=== PATIENT | male | born 1965 | race Caucasian/White ===

== ENCOUNTER 2018-06-01 14:00 | Inpatient (IN) | payer BC, OTHER ==
[~2018-06-01] VITALS: Ht 177.8 cm; Wt 90.7 kg
[~2018-06-01 14:00] MED LIST: ATOR20TA PO; CALC-860 PO; GABA100C PO; METO50TA16 PO; QUET100T PO; RIVA20TA PO
--- NOTE | 2018-06-01 16:02 | NUR ---
PRE ASSESSMENT: A 53 yo male in intake with flushed complexion. His skin is moist and edema +2 to hands and feet. He denies pain. BP 131/85 P 74 )2 Sat 95%. T 98.4 He reports drinking Vodka for 80 days. He states he drinks 750 ml of vodka daily and last drank this am aroun 1030. He states he had 4 shots. He denies any other substances. He reports he has been living at [facility] and they are unaware he relapsed or that he is here.He attended AA meetings while drinking and did not get honest with support system. He was here at [facility] in September 2017 followed by Delilah John. 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 He is fidgety and gets emotional on assessment. He states he is starting to feel very edgy. Will assess on unit.
[2018-06-01] MEDS ORDERED: PRAZ2CAP2 PO (16:04)
[2018-06-01] MEDS ORDERED: NIFE30TA89 PO (16:05)
[2018-06-01] MEDS ORDERED: DULO60CA45 PO (16:06)
[2018-06-01] MEDS ORDERED: GABA-534 PO (16:06)
[2018-06-01] MEDS ORDERED: OMEP20CA10 PO (16:07)
[2018-06-01] MEDS ORDERED: TRAZ-214 PO (16:08)
[2018-06-01] MEDS ORDERED: LOPERAMIDE HCL 2 MG CAPSULE PO PRN (16:30)
[2018-06-01] MEDS ORDERED: 5 DAY TAPER VALIUM-SERENITY PROTOCOL PO PRN (16:30)
[2018-06-01] MEDS ORDERED: MAGNESIUM HYDROXIDE 30 ML LIQUID UDC PO PRN (16:30)
[2018-06-01] MEDS ORDERED: LORAZEPAM 1 MG TABLET PO PRN (16:30)
[2018-06-01] MEDS ORDERED: ONDANSETRON ODT 4 MG TAB.RAPDIS SL PRN (16:30)
[2018-06-01] MEDS ORDERED: THIAMINE HCL 200 MG/2 ML VIAL IM ONE (16:30)
[2018-06-01] MEDS ORDERED: diphenhydrAMINE 50 MG CAPSULE PO PRN (16:30)
[2018-06-01] MEDS ORDERED: LORAZEPAM 2 MG/1 ML VIAL IM PRN (16:30)
[2018-06-01] MEDS ORDERED: MAG HYDROX/AL HYDROX/SIMETH 30 ML LIQUID UDC PO PRN (16:30)
[2018-06-01] MEDS: LORAZEPAM 1 MG TABLET PO PRN ×2 (16:54→22:40)
--- NOTE | 2018-06-01 17:00 | NUR ---
ADMISSION: Pt. arrived on unit at 1609 for medically supervised withdrawal of ETOH (Vodka). Skin and body check completed. UA collected for UDS. Edema +2 noted to hands and feet. He denies pain. He is using our W/C for ambulation due to weakness in legs which he states happens when he withdrawals. He presents with guarded affect and anxious mood. His face is flushed. His hands are tremulous. Sweat noted around brow area and hairline. He states he is sensitive to noise and light. He gets emotional on assessment and states the last 80 days he has been lying to everyone in his support group and sober living. BP 131/85 P 74 T 98.4 o2 SAT 95% CIWA 19 ETOH USE HISTORY: He reports drinking Vodka for 80 days. He states he drinks 750 ml of vodka daily and last drank this am around 1030 . He states he had 4 shots. He denies any other substance use. He reports he has been living at [facility] and they are unaware he relapsed or that he is here.He attended AA meetings while drinking. He was here at [facility] in September 2017 followed by Delilah John. He states he has been drinking in this pattern since his relapse 80 days ago. Pt reports his typical s/s of w/d consist of tremors,nausea,tightness in chest,racing heart and weakness in legs. 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 PMH includes HTN ,GERD,Depression,Anxiety and Insomnia.He brought home medications into facility which were reconciled. Dr. Albert in [place] is his PCP. Pt is a candidate for MRSA swab as he has been living in [facility]. He states he is motivated to go to treatment after her. Treatment HX. He has been at [facility]. He was also in [facility] in 2016 and [facility] in 2016. He states his longest period of sobriety was 4 yeasr 2 years ago. He states his triggers to relapsing are the feeling related to his 17 yr old daughter getting hit by a falling tree limb a couple of years ago and paralyzing her confining her to a wheelchair. He also states growing up as a brat kept him him from building close ties. he states he feels a tremendous sense of loss from losing his father a few years ago and people he has loved including ex due to his drinking. Pt states he has a support system,a sponsor and attends meetings and has been dishonest in the last 80 days about his drinking. Oriented Pt to staff and unit. Administered B1 injection as ordered. Administered 2mg Ativan PO PRN for CIWA 19. Pt is laying in bed. Call [place] in reach.Bed locked and low. Encouraged rest. Will provide safe and supportive environment.
[2018-06-01 17:01] LABS: *AMPHETAMINE, URINE NEGATIVE (NEGATIVE); *BARBITURATE, URINE NEGATIVE (NEGATIVE); *CANNABINOID, URINE NEGATIVE (NEGATIVE); *COCCAINE, URINE NEGATIVE (NEGATIVE); *OPIATE, URINE NEGATIVE (NEGATIVE); *PHENCYCLIDINE SCREEN,URINE NEGATIVE (NEGATIVE)
[2018-06-01] MEDS: DULOXETINE 60 MG CAPSULE.DR PO SCH (17:46)
--- NOTE | 2018-06-01 17:55 | NUR ---
Ativan 2 mg PO PRN effective as admission CIWA was 19 and CIWA 14. Pt states he feels anxious but it has lessened. He continues to report sensitivity to light and noise. He reports restlessness. He does have an appetite and is eating dinner. Will continue to monitor and offer support.
[2018-06-01] MEDS ORDERED: QUETIAPINE FUMARATE 100 MG TABLET PO SCH ×2 (18:00→21:00)
[2018-06-01] MEDS ORDERED: TRAZODONE 100 MG TABLET PO SCH (18:00)
--- NOTE | 2018-06-01 18:49 | NUR ---
END OF SHIFT: Newly admitted this afternoon. He is currently laying in bed watching TV. Last CIWA 14 after 2mg of Ativan given for CIWA 19. He ate 50% of dinner. He states the Ativan was mildly effective. Pt was encouraged to increase fluids and rest. Will pass shift report to oncoming night nurse.
--- NOTE | 2018-06-01 19:30 | NUR ---
START OF SHIFT NOTE RECEIVED REPORT FROM DAY SHIFT NURSE. PATIENT IS A 53 YEAR OLD MALE NEWLY ADMITTED FOR ETOH WITHDRAWAL. PATIENT WAS PLACED ON 5 DAY VALIUM TAPER. CIWA WAS 19 DURING ADMISSION, PRN ATIVAN GIVEN AND CIWA WENT DOWN TO 14. PATIENT IN BED RESTING AT THIS TIME, PATIENT UNSHAVEN, FLAT AFFECT, DEPRESSED MOOD AND DISHEVELED. ENCOURAGE SAFETY MEASURES IN PLACE. CALL LIGHT IN REACH. WILL CONTINUE TO MONITOR.
[2018-06-01 20:00] VITALS: BP 136/66
--- NOTE | 2018-06-01 20:00 | NUR ---
CIWA ASSESSMENT PATIENT PRESENTS WITH ANXIETY, RESTLESSNESS , IRRITABILITY , FLUSHED FACE, DIAPHORESIS, GENERALIZED BODY ACHES, BILATERAL TREMORS NOTED ON BOTH HANDS, RESTLESS LEGS, TIGHTNESS ON CHEST, PER PATIENT IT'S ONE OF HIS WITHDRAWAL SYMPTOMS WHEN HE DON'T DRINK. VS BP- 136/66 P-64 T-97.8 R-18 PA-05/03 SpO2 AT 94% IN RA. Addendum: 06/01/18 at 2228 by MARY GRAF LVN CIWA IS 18
[2018-06-01] MEDS: IBUPROFEN 600 MG TABLET PO PRN (20:04)
--- NOTE | 2018-06-01 20:04 | NUR ---
PRN MOTRIN ADMINISTRATION PATIENT C/O GENERALIZED BODY ACHES AND TIGHTNESS ON CHEST. WILL MONITOR FOR EFFECTIVENESS
[2018-06-01] MEDS ORDERED: DIAZEPAM 10 MG TABLET PO SCH (21:00)
--- NOTE | 2018-06-01 21:04 | NUR ---
RYAN REILLY RE-ASSESSMENT PATIENT STATES PAIN IS STILL 6/10, PATIENT STILL HE STILL FEELS PRESSURE AND TIGHTNESS ON HIS CHEST. NO SOB. NO NUMBNESS OR WEAKNESS IN THE FACE , ARM OR LEG. ALERT AND ORIENTED. WILL NOTIFY DR. CEDEÑO
--- NOTE | 2018-06-01 21:45 | NUR ---
RN note EKG, Troponin and CKMB Patient c/o chest tightness with no radiation. Vital signs were checked and as follows: VN=493/66, Pulse=93, O2 sat on room air=95%. Dr. Pederson on the unit and he ordered EKG stat, Troponin stat and CKMB stat. Orders entered.
[2018-06-01] MEDS: TRAZODONE 100 MG TABLET PO SCH (22:36)
--- NOTE | 2018-06-01 22:40 | NUR ---
PRN ATIVAN ADMINISTRATION PATIENT ANXIOUS, RESTLESS, AGITATED, RESTLESS, WORRIED, SWEATING AND PANIC FEELING. CIWA 16
[2018-06-01 22:59] LABS: BILIRUBIN,TOTAL 0.4 mg/dL (0.2-1.0); CREATININE 0.9 mg/dL (0.6-1.3); MAGNESIUM 2.1 mg/dL (1.8-2.4); POTASSIUM 3.4 mmol/L (3.5-5.1); TOTAL PROTEIN, SERUM 6.3 g/dL (6.4-8.2)
[2018-06-01 23:14] LABS: BASOPHILS % (AUTO) 1.1 % (0.0-2.0); EOSINOPHILS # (AUTO) 0.2 K/uL (0.0-0.7); HEMATOCRIT 39.5 % (36.7-47.1); HEMOGLOBIN 13.8 g/dL (12.5-16.3); LYMPHOCYTES # (AUTO) 1.6 K/uL (20.0-40.0); LYMPHOCYTES % (AUTO) 37.9 % (20.5-51.5); MEAN CORPUSCULAR HEMOGLOBIN 35.1 uug (23.8-33.4); MEAN CORPUSCULAR HGB CONC 35 g/dL (32.5-36.3); MEAN CORPUSCULAR VOLUME 100.7 fL (73.0-96.2); MONOCYTES # (AUTO) 0.6 K/uL (2.0-10.0); MONOCYTES % (AUTO) 13.5 % (0.0-11.0); NEUTROPHILS # (AUTO) 1.8 K/uL (1.8-8.9); NEUTROPHILS % (AUTO) 42.5 % (38.5-71.5); PLATELET COUNT (AUTO) 178 K/uL (152-348); RED BLOOD CELL COUNT(AUTO) 3.93 MIL/uL (4.06-5.63); WHITE BLOOD COUNT (AUTO) 4.2 K/uL (3.6-10.2)
[2018-06-01] MEDS ORDERED: POTASSIUM CHLORIDE 20 MEQ TAB.PRT.SR PO ONE (23:30)
--- NOTE | 2018-06-01 23:40 | NUR ---
PRN ATIVAN RE-ASSESSMENT PATIENT STATES ATIVAN HELPFUL. PATIENT IS LESS ANXIOUS. CIWA IS 14. CHEST TIGHTNESS IS 4/10 AT THIS TIME, TOLERABLE.
[2018-06-02] VITALS: BP 124/76
--- NOTE | 2018-06-02 | NUR ---
CIWA ASSESSMENT PATIENT IN BED WITH EYES CLOSED. PATIENT WOKE WHEN VS WAS TAKEN. PATIENT STATES ANXIETY IS STILL THE SAME BUT WILL TRY TO GO BACK TO SLEEP. SWEATING AND FINE TREMORS NOTED ON BILATERAL HANDS. CHEST TIGHTNESS IS 4/10 , TOLERABLE. NO NUMBNESS ON FACE , ARMS OR NECK. CIWA IS 11 AT THIS TIME.
[2018-06-02 02:58] LABS: EOSINOPHILS % (MANUAL) 3 % (0-8); LYMPHOCYTES % (MANUAL) 36 % (20-40); MONOCYTES % (MANUAL) 17 % (2-10); NEUTROPHILS % (MANUAL) 44 % (42-75)
[2018-06-02 04:00] VITALS: BP 134/74
--- NOTE | 2018-06-02 04:00 | NUR ---
CIWA ASSESSMENT PATIENT IN BED, WOKE UP WHILE DOING VS. PATIENT PRESENTS WITH ANXIETY, FINE TREMORS , SWEATING AND C/O CHEST TIGHTNESS 3/10 BUT TOLERABLE. WILL CONTINUE TO MONITOR
--- NOTE | 2018-06-02 07:16 | NUR ---
END OF SHIFT NOTE PATIENT SLEPT 8 HOURS. FLUID INTAKE 850 ML. VOIDED X 1. NO BM. MONITORED PATIENT THROUGHOUT SHIFT. PATIENT WAS ANXIOUS, RESTLESS, PANIC FEELING, BILATERAL HAND TREMORS, SWEATING AND C/O CHEST TIGHTNESS WHICH HE STATED WAS ONE OF HIS WITHDRAWAL SYMPTOMS WHEN NOT DRINKING. NO NUMBNESS ON FACE. NO SOB. PATIENT WAS STARTED ON VALIUM TAPER, NO ADVERSE REACTION. PRN MOTRIN WAS GIVEN WAS INEFFECTIVE. DR. CEDEÑO WAS HERE AND ASSESSED PATIENT. HE MADE AN ORDER FOR EKG AND LABS. NEW ORDER OF PROCARDIA ORDERED. PATIENT WAS GIVEN PRN ATIVAN AND MOTRIN . PATIENT WAS C/O CHEST TIGHTNESS AND GOT BETTER OVERNIGHT. PAIN WAS 3/10 AT 4 AM AND STATES, TOLERABLE. TROPONIN WAS NORMAL. EKG WAS SEEN BY DR. CEDEÑO AND NO NEW ORDER GIVEN. VS WNL. LAST ONE WAS 134/74, HR-67. RELAXATION TECHNIQUE PROVIDED. ENCOURAGED FLUIDS. LAST CIWA 11 AT 4 AM. SAFETY MEASURES IN PLACE. CALL LIGHT IN REACH. WILL CONTINUE TO MONITOR.
--- NOTE | 2018-06-02 07:40 | NUR ---
START OF SHIFT PT IS A 53 Y/O M ADMITTED ON 06/01/18 FOR MEDICALLY SUPERVISED ETOH - VODKA WITHDRAWAL. PT HAS BEEN PLACED ON A VALIUM TAPER THAT STARTED ON LAST NIGHT AND TOLERATED WELL. PT HAS BEEN GIVEN ATIVAN 2 MG, IBUPROFEN PO PRNS LAST SHIFT. LAST CI 11 @0400. PT HAS AN ANXIOUS AND WORRIED AFFECT, FACIAL FLUSHING, PT PRESENTS DIAPHORESIS, TREMORS, FEELING OF "TIGHTNESS OF THE CHEST," HIGH ANXIETY, RESTLESSNESS, AGITATION, AND TINGLING SENSATION ON THE FEET. PT REPORTS HE HAS HAD THE FEELING OF "TIGHTNESS OF THE CHEST" WHEN WITHDRAWALING BEFORE, AND FEELS IT MAY BE DUE TO HIS HIGH ANXIETY. TROPONIN NEG, EKG WAS SEEN BY MD; CK-MD PENDING. INSTRUCTED PT TO DO DEEP BREATHING EXERCISES TO PROMOTE RELAXATION. SIDE RAILS UP X2, BED IN LOW POSITION, CALL LIGHT WITHIN REACH. WILL CONTINUE TO MONITOR. Addendum: 06/02/18 at 0958 by CHUY OLIVER RN PT HAS PITTING +1 EDEMA ON BILATERAL ANKLES AND WRISTS.
[2018-06-02] MEDS: PANTOPRAZOLE SODIUM 40 MG TABLET.DR PO SCH (07:46)
[2018-06-02] MEDS: LORAZEPAM 1 MG TABLET PO PRN (07:46)
--- NOTE | 2018-06-02 07:46 | NUR ---
PRN ATIVAN 2 MG PO PRN GIVEN FOR CIWA 17. PT PRESENTS FACIAL FLUSHING, ANXIOUS AFFECT, C/O CHEST TIGHTNESS, INCREASED ANXIETY, AGITATION, RESTLESSNESS, FEELING OF PANIC. WILL CLOSELY MONITOR AND REASSESS. Addendum: 06/02/18 at 0833 by CHUY OLIVER RN CHEST PAIN 01/31, ANXIETY 06/02.
[2018-06-02 08:00] VITALS: BP 173/104
--- NOTE | 2018-06-02 08:00 | NUR ---
CIWA ASSESSMENT CIWA 17. PT LAYING IN BED WITH TV ON, A/OX4, RESPIRATIONS EVEN AND UNLABORED. PT OFTEN TAKES DEEP BREATHES. PT HAS FACIAL FLUSHING, PT PRESENTS DIAPHORESIS, TREMORS, FEELING OF "TIGHTNESS OF THE CHEST" - 3/10 PAIN, HIGH ANXIETY, RESTLESSNESS, AGITATION, AND TINGLING SENSATION ON THE FEET. BP 173/104, HR: 67, RR: 18, O2SAT 99%, T: 98.3. ATIVAN 2MG PO PRN GIVEN @0746, SCHEDULED 0800 PROCARDIA GIVEN. WILL CLOSELY MONITOR.
[2018-06-02] MEDS: DULOXETINE 60 MG CAPSULE.DR PO SCH (08:18)
[2018-06-02] MEDS: FOLIC ACID 1 MG TABLET PO SCH (08:18)
[2018-06-02] MEDS: THIAMINE HCL 100 MG TABLET PO SCH (08:18)
[2018-06-02] MEDS: ATORVASTATIN 20 MG TABLET PO SCH (08:18)
[2018-06-02] MEDS: MULTIVITAMINS,THERAPEUTIC TABLET PO SCH (08:18)
[2018-06-02] MEDS: NIFEdipine XL 30 MG TABSR PO SCH (08:29)
--- NOTE | 2018-06-02 08:46 | NUR ---
REASSESSMENT PT REPORTS STILL HAVING CHEST TIGHTNESS BUT HAS DECREASED HIS ANXIETY SLIGHTLY TO 6. PT STATES IT IS UNCOMFORTABLE AND MAKES HIM WANT TO TAKE DEEP BREATHS. WILL CONTINUE TO CLOSELY MONITOR. Addendum: 06/02/18 at 1217 by CHUY OLIVER RN BP :158/99 HR: 65
[2018-06-02] MEDS: DIAZEPAM 10 MG TABLET PO SCH ×3 (08:50→20:30)
[2018-06-02] MEDS ORDERED: TUBERCULIN,PURIF.PROT.DERIV. 5 TU/0.1 ML TEST ID ONE (09:00)
[2018-06-02] MEDS ORDERED: Medication Not On Formulary EA (Rivaroxaban (Xarelto) 1 TAB) PO SCH (09:00)
[2018-06-02] MEDS ORDERED: Medication Not On Formulary EA (Omeprazole 1 CAP) PO SCH (09:00)
--- NOTE | 2018-06-02 10:06 | NUR ---
2G NA DIET ORDERED. Addendum: 06/02/18 at 1645 by CHUY OLIVER RN COMMUNICATIONS; SAMUEL DIET ORDERED BY
--- NOTE | 2018-06-02 12:00 | NUR ---
CIWA ASSESSMENT CIWA 16. PT HAS BEEN ISOLATIVE IN ROOM, PRESENT AN ANXIOUS MOOD, FACIAL FLUSHING, DIAPHORESIS, TREMORS, ANXIETY, AGITATION, CONTINUES TO C/O FEELING OF "TIGHTNESS OF THE CHEST" - 3/10 PAIN, RESTLESSNESS, AND TINGLING SENSATION ON THE FEET. WILL CONTINUE TO CLOSELY MONITOR.
[2018-06-02 12:17] VITALS: BP 141/81
--- NOTE | 2018-06-02 14:33 | NUR ---
Client was prompted to attend group counseling sessions.
--- NOTE | 2018-06-02 15:10 | NUR ---
PRN ZOFRAN 4 MG SL, IBUPROFEN 600 MG, MILK OF MAG, PRN GIVEN. PT IS LAYING IN BED, WITH ANXIOUS AFFECT, C/O NAUSEA, UPPER STOMACH PAIN, HEADACHE PAIN 6/10. WILL MONITOR AND REASSESS.
[2018-06-02] MEDS: IBUPROFEN 600 MG TABLET PO PRN (15:11)
[2018-06-02 16:00] VITALS: BP_SYST 156; BP_SYST 161; BP_DIAS 100; BP_DIAS 93
--- NOTE | 2018-06-02 16:00 | NUR ---
CIWA ASSESSMENT CIWA 18. PT PRESENT AN ANXIOUS MOOD, NAUSEA, HEADACHE, FACIAL FLUSHING, DIAPHORESIS, TREMORS, ANXIETY, AGITATION, FEELING OF "TIGHTNESS OF THE CHEST" - 3/10 PAIN, RESTLESSNESS, AND TINGLING SENSATION ON THE FEET. WILL CONTINUE TO CLOSELY MONITOR.
--- NOTE | 2018-06-02 16:10 | NUR ---
REASSESSMENT PT REPORTS MEDICATION WAS EFFECTIVE AND NAUSEA CEASED AND STOMACH PAIN AND HEADACHE DECREASED IN INTENSITY. WILL CONTINUE TO MONITOR.
[2018-06-02] MEDS ORDERED: Medication Not On Formulary EA (Prazosin Hcl 1 CAP) PO SCH (18:00)
[2018-06-02] MEDS: RIVAROXABAN 10 MG TABLET PO SCH (18:00)
[2018-06-02] MEDS: CLONIDINE HCL 0.1 MG TABLET PO PRN (18:03)
--- NOTE | 2018-06-02 18:03 | NUR ---
PRN CLONIDINE GIVEN FOR BP 161/100. WILL MONITOR AND REASSESS.
--- NOTE | 2018-06-02 19:03 | NUR ---
REASSESSMENT BP DECREASED TO 156/93. WILL CONTINUE TO MONITOR.
--- NOTE | 2018-06-02 19:28 | NUR ---
END OF SHIFT LAST CIWA 18. PT HAS BEEN GIVEN CLONIDINE FOR BP 161/100; DECREASED TO 156/93. PT HAS BEEN GIVEN ATIVAN 2MG, MILK OF MAG, IBUPROFEN 600 MG, ZOFRAN 4 MG, CLONIDINE PRNS DURING SHIFT. PT CONTINUES TO C/O CHEST PRESSURE BUT STATED IT HAD DECREASED SLIGHTLY BEFORE END OF SHIFT. FLUID INTAKE 1750 ML, VOIDED X4, BM 1. PT HAS BEEN ISOLATIVE IN ROOM LAYING IN BED THROUGHOUT SHIFT W/ C/O FATIGUE. SAFETY MEASURES IN PLACE. ENDORSEMENT GIVEN TO TURPENTINE FARMER NURSE.
--- NOTE | 2018-06-02 19:30 | NUR ---
START OF SHIFT NOTE RECEIVED REPORT FROM DAY SHIFT NURSE. PATIENT IS A 53 YEAR OLD MALE ADMITTED FOR ETOH WITHDRAWAL. CONTINUE ON VALIUM TAPER. PATIENT ISOLATIVE. PATIENT WAS GIVEN FOR ZOFRAN, MILK OF MAGNESIA, IBUPROFEN , CLONIDINE AND ATIVAN. LAST CIWA 16. PATIENT IN THE ROOM , RESTING AT THIS TIME. UPON ASSESSMENT , PATIENT PRESENTS WITH ANXIETY, FLUSHED FACE, DIAPHORESIS, RESTLESSNESS, FIDGETY, YAWNING, NOTED BILATERAL TREMORS ON BOTH HANDS WHILE DRINKING HIS WATER, PINS AND NEEDLE SENSATION ON BOTH LEGS, SENSITIVE TO LIGHT AND SOUNDS. SAFETY MEASURES IN PLACE. CALL LIGHT IN REACH. WILL CONTINUE TO MONITOR.
[2018-06-02 20:00] VITALS: BP 147/88
--- NOTE | 2018-06-02 20:00 | NUR ---
CIWA ASSESSMENT PATIENT UNSHAVEN, DISHEVELED, FLAT AFFECT AND DEPRESSED MOOD. PATIENT PRESENTS WITH ANXIETY, FLUSHED FACE, DIAPHORESIS, RESTLESSNESS, FIDGETY, YAWNING, TENSE, NOTED BILATERAL TREMORS ON BOTH HANDS WHILE DRINKING HIS WATER, PINS AND NEEDLE SENSATION ON BOTH LEGS, SENSITIVE TO LIGHT/ SOUNDS AND FATIGUE. CIWA 17
[2018-06-02] MEDS: TRAZODONE 100 MG TABLET PO SCH (20:30)
[2018-06-02] MEDS: PRAZOSIN HCL 1 MG CAPSULE PO SCH (20:30)
[2018-06-03] VITALS: BP 123/75
--- NOTE | 2018-06-03 | NUR ---
CIWA DEFERRED PATIENT SLEEPING . RESPIRATION EVEN AND UNLABORED. SAFETY MEASURES IN PLACE. CALL LIGHT IN REACH. WILL CONTINUE TO MONITOR
[2018-06-03 04:00] VITALS: BP 123/78
--- NOTE | 2018-06-03 04:00 | NUR ---
CIWA DEFERRED PATIENT SLEEPING . RESPIRATION EVEN AND UNLABORED. SAFETY MEASURES IN PLACE. CALL LIGHT IN REACH. WILL CONTINUE TO MONITOR
[2018-06-03] MEDS: HYDROXYZINE PAMOATE 25 MG CAPSULE PO PRN ×2 (05:20→13:48)
[2018-06-03] MEDS: IBUPROFEN 600 MG TABLET PO PRN (05:20)
--- NOTE | 2018-06-03 05:20 | NUR ---
CIWA ASSESSMENT PATIENT WOKE C/O HEADACHE, MODERATE ANXIETY, SWEATING, CHILLS, RESTLESS LEGS, YAWNING, SENSITIVE TO LIGHT AND SOUNDS . CIWA 12.
--- NOTE | 2018-06-03 05:20 | NUR ---
PRN MOTRIN AND VISTARIL ADMINISTRATION PATIENT C/O HEADACHE AND ANXIETY. WILL MONITOR FOR EFFECTIVENESS
--- NOTE | 2018-06-03 07:11 | NUR ---
END OF SHIFT NOTE PATIENT SLEPT 11 HOURS. FLUID INTAKE 1,250 ML. VOIDED X 1. NO BM. MONITORED PATIENT THROUGHOUT SHIFT. PATIENT TENDS TO BE ISOLATIVE. SCHEDULED MEDICATION AND VALIUM TAPER ORDERED, TOLERATED WELL AND NO ADVERSE REACTION. PATIENT PRESENTED WITH ANXIETY, FLUSHED FACE, DIAPHORESIS, RESTLESSNESS, FIDGETY, YAWNING, NOTED BILATERAL TREMORS ON BOTH HANDS , PINS AND NEEDLE SENSATION ON BOTH LEGS, SENSITIVE TO LIGHT AND SOUNDS AND FATIGUE. PATIENT STATES MEDICATIONS ARE EFFECTIVE IN CONTROLLING HIS WITHDRAWAL SYMPTOMS. AT 0520, PATIENT C/O OF HEADACHE AND ANXIETY, PRN MOTRIN AND VISTARIL GIVEN, EFFECTIVE. LAST CIWA 12. SAFETY MEASURES IN PLACE. CALL LIGHT IN REACH. WILL CONTINUE TO MONITOR.
[2018-06-03] MEDS: PANTOPRAZOLE SODIUM 40 MG TABLET.DR PO SCH (07:25)
--- NOTE | 2018-06-03 07:30 | NUR ---
Pt. is a 53 y/o male admitted for the medically managed withdrawal from ETOH. Pt placed on a 5 day valium taper to manage his withdrawal symptoms. Endorsed pt.'s behavior from previous shift as being anxious, restless, and isolative. Received pt. in room. Pt. in bed with eyes closed. Pt. responds to name and touch. No signs of SOB noted. Pt. presents with flushed facial skin, diaphoresis and hand tremors. Educated pt. on treatment plan for the day and medication regiment. Pt. given PRN Motrin and Vistaril to manage his symptoms last night. Last CI 12. Safety measures in place. Will continue to monitor pt.'s behavior for safety.
[2018-06-03 08:00] VITALS: BP 131/89
[2018-06-03] MEDS: DIAZEPAM 5 MG TABLET PO SCH ×4 (08:51→20:17)
[2018-06-03] MEDS: DULOXETINE 30 MG CAPSULE.DR PO SCH (08:51)
[2018-06-03] MEDS: ATORVASTATIN 20 MG TABLET PO SCH (08:51)
[2018-06-03] MEDS: FOLIC ACID 1 MG TABLET PO SCH (08:51)
[2018-06-03] MEDS: THIAMINE HCL 100 MG TABLET PO SCH (08:51)
[2018-06-03] MEDS: MULTIVITAMINS,THERAPEUTIC TABLET PO SCH (08:51)
[2018-06-03] MEDS: NIFEdipine XL 30 MG TABSR PO SCH (08:51)
[2018-06-03] MEDS ORDERED: DULOXETINE 60 MG CAPSULE.DR PO SCH (09:00)
[2018-06-03 10:11] LABS: HEPATITIS B SURFACE AG Negative (Negative)
[2018-06-03 12:00] VITALS: BP 143/99
[2018-06-03] MEDS: CLONIDINE HCL 0.1 MG TABLET PO PRN (13:48)
--- NOTE | 2018-06-03 13:48 | NUR ---
PRN Medication Pt. in room with flushed facial skin and complaining of anxiety. At this time gave pt. PRN vistaril and clonidine. Will continue to monitor pt.'s behavior for medication effectiveness and safety.
--- NOTE | 2018-06-03 14:48 | NUR ---
PRN Re-Assessment Pt. laying in bed with eyes closed. Respirations even and unlabored. Medication effective. Will continue to monitor pt.'s behavior for safety.
[2018-06-03] MEDS: RIVAROXABAN 10 MG TABLET PO SCH (16:53)
[2018-06-03 17:03] VITALS: BP 124/82
--- NOTE | 2018-06-03 19:00 | NUR ---
End of Shift Note Pt. is a 53 y/o male admitted for the medically managed withdrawal from ETOH. Pt placed on a 5 day valium taper to manage his withdrawal symptoms. Throughout shift pt. presented with flushed facial skin, diaphoresis and hand tremors. Upon approach pt. is pleasant but guarded with a flat affect. Encouraged pt. to verbalize concerns and emotions. Pt. isolated himself in his room for the majority of the shift only coming out for needs. Pt. given PRN Clonidine and Vistaril to manage his symptoms. Last CIWA 14 at 1600. Safety measures in place. Will endorse pt's care to oncoming shift.
--- NOTE | 2018-06-03 19:10 | NUR ---
Start of shift note Received report from day shift nurse. Pt is a 53 yo male, A+Ox4, presenting to [facility] for ETOH withdrawal. Pt noted to be anxious, agitated, and restless. Pt has HX of HTN, GERD, Anxiety, Depression, and insomnia which will be monitored during shift. Pt is on 5 day Valium taper, tolerated well. Respirations even and unlabored. Will continue to monitor.
[2018-06-03 20:08] VITALS: BP 140/96
--- NOTE | 2018-06-03 20:09 | NUR ---
CIWA: 13, Pt noted with fine tremors, sweat on forehead, anxiety, agitation, itchiness, and mild headache. Respirations even and unlabored. Will continue to monitor.
[2018-06-03] MEDS: PRAZOSIN HCL 1 MG CAPSULE PO SCH (20:17)
[2018-06-03] MEDS: TRAZODONE 100 MG TABLET PO SCH (20:17)
--- NOTE | 2018-06-04 00:22 | NUR ---
V/S refused and CIWA deferred for sleep. Respirations even and unlabored. Will continue to monitor.
[2018-06-04] MEDS: IBUPROFEN 600 MG TABLET PO PRN ×2 (01:43→14:56)
[2018-06-04] MEDS: HYDROXYZINE PAMOATE 25 MG CAPSULE PO PRN (01:43)
--- NOTE | 2018-06-04 01:45 | NUR ---
PRN Motrin and Vistaril Pt c/o anxiety and headache 03/03. PRN Motrin and Vistaril given and tolerated well. Will reassess within 1 HR. Will continue to monitor.
--- NOTE | 2018-06-04 02:40 | NUR ---
PRN Motrin and Vistaril Reassessment Medications effective. Pt expresses reduction of headache to 2/10 and reduction in anxiety. No s/s of ASE noted at this time. Respirations even and unlabored. Will continue to monitor.
--- NOTE | 2018-06-04 04:10 | NUR ---
V/S refused and CIWA deferred for sleep. Respirations even and unlabored. Will continue to monitor.
--- NOTE | 2018-06-04 06:48 | NUR ---
End of shift note Pt was continuously noted with anxiety, agitation, fine tremors, restlessness, and headache. Pt remained in room for majority of shift except to get food from kitchen. Pt remained cooperative and compliant with all aspects of treatment. Pt was given PRN Motrin and Vistaril @0145. Pt is on 5 day Valium taper, tolerated well. Pt slept for a total of 7 HRS. Last CIWA: 13 @1999. Respirations even and unlabored. Will endorse to day shift nurse.
[2018-06-04] MEDS: PANTOPRAZOLE SODIUM 40 MG TABLET.DR PO SCH (06:54)
--- NOTE | 2018-06-04 07:30 | NUR ---
START OF SHIFT Pt 53 y/o male admitted for etoh withdrawal. Pt received with eyes closed resting, but easily arousable to name. Pt alert and oriented to name, place, and time. Perrla. Skin warm and moist to touch. Respirations even and unlabored. Bilateral hand tremors noted. Pt appears disheveled. Clothes and empty drink bottles scattered throughout the room. Encouraged to maintain hygiene. Pt irritable this morning, requesting for me to leave room because he stated he wants to go back to sleep. Pt also refused labs this morning and verbalized for the refuse laborer to come back at a later time. It was reported that pt slept for 7 hours last night. Pt is on a 5 day valium and is on day 4. It was reported that pt received motrin po prn and vistaril po prn per MD order last night. Bed on lowest position with side rails x2 up for safety. Call light within reach.
[2018-06-04 08:00] VITALS: BP 115/71
--- NOTE | 2018-06-04 08:00 | NUR ---
CIWA ASSESSMENT Pt with ciwa = 16. Pt agitated, and did not want to be disturbed. Perspiration on head and skin noted. Bilateral hand tremors noted. Pressured speech noted with pt responses.
[2018-06-04] MEDS: DULOXETINE 30 MG CAPSULE.DR PO SCH (08:33)
[2018-06-04] MEDS: FOLIC ACID 1 MG TABLET PO SCH (08:33)
[2018-06-04] MEDS: NIFEdipine XL 30 MG TABSR PO SCH (08:34)
[2018-06-04] MEDS: ATORVASTATIN 20 MG TABLET PO SCH (08:34)
[2018-06-04] MEDS: MULTIVITAMINS,THERAPEUTIC TABLET PO SCH (08:34)
[2018-06-04] MEDS: THIAMINE HCL 100 MG TABLET PO SCH (08:34)
[2018-06-04] MEDS: DIAZEPAM 5 MG TABLET PO SCH ×3 (08:34→20:40)
[2018-06-04 10:39] LABS: BILIRUBIN,TOTAL 0.7 mg/dL (0.2-1.0); CREATININE 0.8 mg/dL (0.6-1.3); POTASSIUM 3.9 mmol/L (3.5-5.1); TOTAL PROTEIN, SERUM 7.2 g/dL (6.4-8.2)
[2018-06-04 12:00] VITALS: BP 128/84
--- NOTE | 2018-06-04 12:00 | NUR ---
CIWA ASSESSMENT Pt with ciwa = 16. Pt agitated, and did not want to be disturbed. Perspiration on forehead noted. Bilateral hand tremors noted. Pressured speech noted with pt responses. Pt with complaints of chills and sweats.
--- NOTE | 2018-06-04 14:58 | NUR ---
PRN IBUPROFEN Pt states has headache 05/03. Ibuprofen po prn per MD order given and tolerated well.
--- NOTE | 2018-06-04 15:58 | NUR ---
PRN IBUPROFEN EVAL Pt states headache 01/03.
[2018-06-04 16:00] VITALS: BP 108/75
--- NOTE | 2018-06-04 16:00 | NUR ---
CIWA ASSESSMENT Pt with ciwa = 16. Pt irritable. Pt anxious too. Skin moist to touch. Bilateral hand tremors noted. Pt with complaints of chills and sweats.
[2018-06-04] MEDS: RIVAROXABAN 10 MG TABLET PO SCH (16:46)
--- NOTE | 2018-06-04 18:33 | NUR ---
END OF SHIFT Pt 53 y/o male admitted for etoh withdrawal. Pt alert and oriented to name, place, and time. Perrla. Skin warm and moist to touch. Respirations even and unlabored. Bilateral hand tremors noted. Pt appears disheveled with hair uncombed, and unkempt. Empty drink bottles scattered throughout the room. Encouraged to maintain hygiene. Pt isolative with no peer interaction. Pt with low motivation for self care. Pt with periods of irritability throughout the morning, refusing labs to be drawn this morning. Pt did not attend group activity. Pt was seen by MD today. Pt medication compliant. Pt last ciwa= 16@1600. Pt is on a 5 day valium taper and is on day 4. Bed on lowest position with side rails x2 up for safety. Call light within reach.
--- NOTE | 2018-06-04 19:10 | NUR ---
Start of shift note Received report from day shift nurse. Pt is a 53 yo male, A+Ox4, presenting to [facility] for ETOH withdrawal. Pt noted with agitation, anxiety, fine tremors, stuffy nose, and restlessness. Pt has HX of HTN, GERD, Anxiety, depression, insomnia, aneurism, craniotomy, Right shoulder repair, and DVT which will be monitored during shift. Pt is on 5 day Valium taper, tolerated well. Respirations even and unlabored. Will continue to monitor.
[2018-06-04] MEDS ORDERED: OXYMETAZOLINE NASAL 0.05% 15 ML SPRAY NS PRN (19:45)
[2018-06-04 20:06] VITALS: BP 138/86
--- NOTE | 2018-06-04 20:06 | NUR ---
CIWA: 13. Pt noted with fine tremors, sweat on forehead, anxiety, agitation, and itchiness. Respirations even and unlabored. Will continue to monitor.
[2018-06-04] MEDS: PRAZOSIN HCL 1 MG CAPSULE PO SCH (20:40)
[2018-06-04] MEDS: TRAZODONE 100 MG TABLET PO SCH (20:40)
--- NOTE | 2018-06-05 00:25 | NUR ---
V/S refused and CIWA deferred for sleep. Respirations even and unlabored. Will continue to monitor.
--- NOTE | 2018-06-05 04:18 | NUR ---
V/S refused and CIWA deferred for sleep. Respirations even and unlabored. Will continue to monitor.
[2018-06-05] MEDS: PANTOPRAZOLE SODIUM 40 MG TABLET.DR PO SCH (06:34)
--- NOTE | 2018-06-05 06:54 | NUR ---
End of shift note Pt was continuously noted with anxiety, agitation, restlessness, and fine tremors. Pt remained in room for majority of shift except to get food from kitchen. Pt remained cooperative and compliant with all aspects of treatment. Pt was not given any PRN medications during shift. Pt is on 5 day Valium taper, tolerated well. Pt slept for a total of 9 HRS. Last CIWA: 13 @2000. Respirations even and unlabored. Will endorse to day shift nurse.
--- NOTE | 2018-06-05 07:23 | NUR ---
START OF SHIFT Pt 53 y/o male admitted for etoh withdrawal. Pt received with eyes closed resting, but easily arousable to name. Pt alert and oriented to name, place, and time. Perrla. Skin warm and moist to touch. Respirations even and unlabored. Bilateral hand tremors noted. Pt appears disheveled. Food wrappings and empty drink bottles scattered throughout the room. Encouraged to maintain hygiene. Pt with low motivation for self care. Pt appears anxious and restless this morning, not able to lay still. It was reported that pt slept for 9 hours last night. Pt is on a 5 day valium and is on day 5. Last ciwa=13 reported at 1999. It was reported that pt remained isolative to room last night. Bed on lowest position with side rails x2 up for safety. Call light within reach.
[2018-06-05 08:00] VITALS: BP 115/80
--- NOTE | 2018-06-05 08:00 | NUR ---
CIWA ASSESSMENT ciwa=13. Pt with moist skin noted. Pt appears irritable and agitated making short abrupt responses. Bilateral hand tremors noted.
[2018-06-05] MEDS: DIAZEPAM 5 MG TABLET PO SCH ×2 (08:45→20:16)
[2018-06-05] MEDS: ATORVASTATIN 20 MG TABLET PO SCH (08:45)
[2018-06-05] MEDS: DULOXETINE 30 MG CAPSULE.DR PO SCH (08:45)
[2018-06-05] MEDS: THIAMINE HCL 100 MG TABLET PO SCH (08:46)
[2018-06-05] MEDS: FOLIC ACID 1 MG TABLET PO SCH (08:46)
[2018-06-05] MEDS: NIFEdipine XL 30 MG TABSR PO SCH (08:46)
[2018-06-05] MEDS: MULTIVITAMINS,THERAPEUTIC TABLET PO SCH (08:46)
[2018-06-05 12:00] VITALS: BP 103/58
--- NOTE | 2018-06-05 12:00 | NUR ---
CIWA ASSESSMENT ciwa=13. Pt appears irritable and agitated. Pt skin moist to touch and with c/o chills and sweats. Bilateral hand tremors noted.
[2018-06-05 16:00] VITALS: BP 115/62
--- NOTE | 2018-06-05 16:00 | NUR ---
CIWA ASSESSMENT ciwa=13. Pt appears irritable and agitated. Skin moist to touch and with c/o chills and sweats. Bilateral hand tremors noted.
[2018-06-05] MEDS: RIVAROXABAN 10 MG TABLET PO SCH (16:46)
--- NOTE | 2018-06-05 18:23 | NUR ---
END OF SHIFT Pt 53 y/o male admitted for etoh withdrawal. Pt alert and oriented to name, place, and time. Perrla. Skin warm and moist to touch. Respirations even and unlabored. Bilateral hand tremors noted. Pt appears disheveled with hair uncombed, and unkempt. Food wrappings scattered throughout the room. Encouraged to maintain hygiene. Pt isolative with no peer interaction. Pt with low motivation for self care. Pt isolative to room all day. Pt did not attend group activity. Pt was seen by MD today. Pt medication compliant. Pt last ciwa= 13@1600. Pt is on a 5 day valium taper and is on day 5. Bed on lowest position with side rails x2 up for safety. Call light within reach.
--- NOTE | 2018-06-05 19:12 | NUR ---
Start of shift note Received report from day shift nurse. Pt is a 53 yo male, A+Ox4, presenting to [facility] for ETOH withdrawal. Pt noted to be anxious, restless, agitated, sweaty, and have fine tremors. Pt has HX of HTN, GERD, Anxiety, Depression, insomnia, DVT, Aneurism, Craniotomy, and Right shoulder repair which will be monitored during shift. Pt is on 5 day Valium taper, tolerated well. Respirations even and unlabored. Will continue to monitor.
[2018-06-05 20:10] VITALS: BP 128/89
--- NOTE | 2018-06-05 20:10 | NUR ---
CIWA: 12. Pt noted with fine tremors, sweat on forehead, anxiety, agitation, and itchiness. Respirations even and unlabored. Will continue to monitor.
[2018-06-05] MEDS: QUETIAPINE FUMARATE 100 MG TABLET PO SCH (20:16)
[2018-06-05] MEDS: TRAZODONE 100 MG TABLET PO SCH (20:16)
[2018-06-05] MEDS: PRAZOSIN HCL 1 MG CAPSULE PO SCH (20:16)
--- NOTE | 2018-06-06 00:15 | NUR ---
V/S refused and CIWA deferred for sleep. Respirations even and unlabored. Will continue to monitor.
--- NOTE | 2018-06-06 04:17 | NUR ---
V/S refused and CIWA deferred for sleep. Respirations even and unlabored. Will continue to monitor.
[2018-06-06] MEDS: PANTOPRAZOLE SODIUM 40 MG TABLET.DR PO SCH (06:32)
--- NOTE | 2018-06-06 07:00 | NUR ---
End of shift note Pt was continuously noted with fine tremors, anxiety, agitation, sweat on forehead, restlessness, and itchiness. Pt remained in room for entire shift. Pt remained cooperative and compliant with all aspects of treatment. Pt was not given any PRN medications during shift. Pt is on 5 day Valium taper, tolerated well. Pt slept for a total of 8 HRS. Last CIWA: 12 @2000. Respirations even and unlabored. Will endorse to day shift nurse.
[2018-06-06 08:00] VITALS: BP 109/52
--- NOTE | 2018-06-06 08:05 | NUR ---
START OF SHIFT: Received Pt. A/O X 4. He presents with apathetic mood and blunted affect. He has completed Valium taper. CIWA 11. He reports anxiety ,mild depression,restlessness and fatigue. He states he might attend groups today. Educated pt on importance of group attendance to improve coping skills and prevent relapse. Pt expressed verbal understanding of education. He also stated he would be returning to the sober living that he was recently using ETOH in.Pt appears to lack motivation toward recovery. Will continue to monitor and manage s/s of w/d.
[2018-06-06] MEDS: MULTIVITAMINS,THERAPEUTIC TABLET PO SCH (08:42)
[2018-06-06] MEDS: DULOXETINE 30 MG CAPSULE.DR PO SCH (08:43)
[2018-06-06] MEDS: FOLIC ACID 1 MG TABLET PO SCH (08:43)
[2018-06-06] MEDS: THIAMINE HCL 100 MG TABLET PO SCH (08:43)
[2018-06-06] MEDS: ATORVASTATIN 20 MG TABLET PO SCH (08:43)
[2018-06-06] MEDS: NIFEdipine XL 30 MG TABSR PO SCH (08:45)
[2018-06-06 12:00] VITALS: BP 117/81
--- NOTE | 2018-06-06 12:00 | NUR ---
CIWA 10 at noon.Tremors can be felt but not observed at this time. He c/o anxiety and agitation. He states he is mildly sensitive to light and noise.
[2018-06-06 16:00] VITALS: BP 140/111
[2018-06-06] MEDS: CLONIDINE HCL 0.1 MG TABLET PO PRN (16:42)
--- NOTE | 2018-06-06 16:43 | NUR ---
CIWA 8 PRN Pt reports anxiety and restlessness. BP 140/111 P 116 Clonidine 0.1 mg PRN given for elevated BP. Pt is fidgety and appears restless
[2018-06-06 17:00] VITALS: BP 135/100
[2018-06-06] MEDS: RIVAROXABAN 10 MG TABLET PO SCH (17:27)
--- NOTE | 2018-06-06 18:42 | NUR ---
PRN Clonidine effective. BP 135/100 P 105
--- NOTE | 2018-06-06 18:59 | NUR ---
END OF SHIFT: Pt has completed Valium taper. Last CIWA 8. He reports anxiety and restlessness. His BP became elevated this afternoon and Clonidine PRN given and effective. He did not attend groups and isolated in his room most of shift. He remains with apathetic mood and congruent affect. He was compliant with meds and increased fluid intake. Discharge scheduled for tomorrow. Will pass shift report to oncoming night nurse.
--- NOTE | 2018-06-06 19:15 | NUR ---
Start of Shift Note: Patient is a 53 y.o male admitted on 06/01/18 for medically supervised withdrawal from ETOH. Patient is alert & oriented x4. Pt received in bed watching TV. He presents with a blunt affect, anxious mood and restlessness. Pt completed his 5-day Valium taper and he is scheduled to be [facility]. Last CIWA is 8. Pt received PRN Clonidine during day shift for increased BP and was effective per report. Pt did not attend groups during the day and remains isolative in his room per report. Encourage pt to increase fluid intake and continue to encourage pt to attend groups to learn coping skills. All needs attended & met. Educated pt of current plan of care for the night and medication regimen. Safety measures in place. Will continue to monitor patient.
[2018-06-06 20:00] VITALS: BP 128/86
[2018-06-06] MEDS: TRAZODONE 100 MG TABLET PO SCH (21:12)
[2018-06-06] MEDS: QUETIAPINE FUMARATE 100 MG TABLET PO SCH (21:13)
[2018-06-06] MEDS: PRAZOSIN HCL 1 MG CAPSULE PO SCH (21:14)
[2018-06-06] MEDS ORDERED: NIFE30TA2 PO (21:47)
[2018-06-06] MEDS ORDERED: ATOR20TA PO (21:47)
[2018-06-06] MEDS ORDERED: TRAZ-214 PO (21:47)
[2018-06-06] MEDS ORDERED: PANT40TA2 PO (21:47)
[2018-06-06] MEDS ORDERED: PRAZ1CAP2 PO (21:47)
[2018-06-06] MEDS ORDERED: RIVA10TA PO (21:47)
[2018-06-06] MEDS ORDERED: DULO30CA2 PO (21:47)
[2018-06-06] MEDS ORDERED: QUET100T PO (21:47)
--- NOTE | 2018-06-07 | NUR ---
Vitals/CIWA deferred Patient refused vitals at this time. Pt is asleep in bed and appears comfortable. Respiration even & unlabored. Unable to assess CIWA at this time d/t pt asleep and will reassess when awake. Safety measures in place. Will continue to monitor patient.
--- NOTE | 2018-06-07 04:00 | NUR ---
Vitals/CIWA deferred Patient refused vitals at this time. Pt still in bed with eyes close. Respiration even & unlabored. Unable to assess CIWA at this time d/t pt asleep and will reassess when awake. Safety measures in place. Will continue to monitor patient.
[2018-06-07] MEDS: PANTOPRAZOLE SODIUM 40 MG TABLET.DR PO SCH (06:42)
--- NOTE | 2018-06-07 07:08 | NUR ---
End of Shift Note: Continue to closely monitor patient. He remained alert & oriented x4. Pt remained withdrawn and isolative in his room throughout the shift. He presented with anxiety, agitation & restlessness. He completed his 5-day Valium taper and he is scheduled to be discharge today to [facility]. Last CIWA 6. No PRn medications received during my shift. Pt remained stable and Vitals noted WNL. He slept for a total of 6 hours. Fluid intake 1585 ml, Voided 3x with no bowel movement. All needs attended. Safety measures in place. Will endorse pt to day shift nurse.
[2018-06-07 08:00] VITALS: BP 120/73
--- NOTE | 2018-06-07 08:05 | NUR ---
START OF SHIFT NOTE Received report from night nurse 29 year old male admitted for ETOH withdrawal and patient completed his Valium taper, tolerated well. Per endorsement patient did not receive any PRN medications, last CIWA 6, slept for 6 hours. Received patient alert awake oriented x4 denies any pain or discomfort. Breathing normal no SOB noted. Skin intact warm and dry to touch. All safety measures in place,call light within reach. Will continues to monitor.
[2018-06-07] MEDS: THIAMINE HCL 100 MG TABLET PO SCH (08:37)
[2018-06-07] MEDS: MULTIVITAMINS,THERAPEUTIC TABLET PO SCH (08:37)
[2018-06-07] MEDS: ATORVASTATIN 20 MG TABLET PO SCH (08:37)
[2018-06-07] MEDS: FOLIC ACID 1 MG TABLET PO SCH (08:37)
[2018-06-07] MEDS: DULOXETINE 30 MG CAPSULE.DR PO SCH (08:37)
[2018-06-07 08:38] VITALS: BP 120/73
[2018-06-07] MEDS: NIFEdipine XL 30 MG TABSR PO SCH (08:38)
--- NOTE | 2018-06-07 09:30 | NUR ---
DISCHARGE NOTE Patient is alert oriented x4 in stable condition. Patient denies any SI/HI. Vital signs WNL. Skin intact warm and dry to touch. All discharge paper work done signed and dated. All belongings returned to the patient including medications, prescriptions. cleared to patient to discharge to [facility]. Patient motivated about being discharge. Patient discharge to [facility] at 06/07/18 at 0930. notified.
== END 2018-06-07 09:30 | disposition home or self-care (01) | DRG 895 ==
LOC: SRC 15:27
PROVIDERS: ADMIT Family Medicine Addiction Medicine; ATTEND Family Medicine Addiction Medicine
PROC: HZ2ZZZZ Detoxification Services for Substance Abuse Treatment (ICD-10-PCS; principal; 2018-06-01)
PROC: HZ31ZZZ Individual Counseling for Substance Abuse Treatment, Behavioral (ICD-10-PCS; 2018-06-02)
DX: F10.239 Alcohol dependence with withdrawal, unspecified (principal); F33.2 Major depressive disorder, recurrent severe without psychotic features; Y90.6 Blood alcohol level of 120-199 mg/100 ml; Z81.1 Family history of alcohol abuse and dependence; Z91.81 History of falling; Z86.718 Personal history of other venous thrombosis and embolism; Z79.899 Other long term (current) drug therapy; Z79.01 Long term (current) use of anticoagulants; I10 Essential (primary) hypertension; E87.6 Hypokalemia; F41.1 Generalized anxiety disorder; M25.50 Pain in unspecified joint; R74.0 Nonspecific elevation of levels of transaminase and lactic acid dehydrogenase [LDH]; R60.0 Localized edema; E78.00 Pure hypercholesterolemia, unspecified
CPT/HCPCS: 36415; 70030-TC; 80307; 83735; 85025; 86580; 86592; 86705; 86803; 87340; 87806; A4663; G0480; J3411; Q0162

== ENCOUNTER 2018-06-26 18:59 | Inpatient (IN) | payer BC, OTHER ==
[~2018-06-26] VITALS: Ht 177.8 cm; Wt 81.6 kg
--- NOTE | 2018-06-26 07:50 | NUR ---
Pre-admission Assessment Patient is a 53-year old, male, seen at intake, AAOx4, no SOB and with anxiety, flushed skin, sweating and tremors noted at this time. Patient also observed to be fidgety and appears tense. Patient verbalized that he had "2 shots" of Vodka at 1830 today but "I feel like withdrawing already since my previous drink to this was 12 noon." Per patient, they called 911 during lunch time today because he thought he was going to have a "heart attack". Per patient's report, paramedics came but cleared him so he was not taken to any hospital. Discussed with patient admission policies of the unit. Patient is coherent and able to respond to questions appropriately. Pt is ambulatory with steady gait. Patient reported he is only drinking alcohol and does not use other substances. Patient reports that for the past 1 month, he was drinking Vodka 750 ml PO daily. Vital signs taken and as follows: FH=613/98, P=107, O2 sat on RA=97%, RR=20, T=98.7. Pt verbalized instructions and teachings regarding disposal of narcotic and other controlled home meds, unit protocols such as taking of vital signs Q4H and handling and disposal of contraband.
[~2018-06-26 18:59] MED LIST changes: -CALC-860 PO; +DULO30CA2 PO; +DULO60CA45 PO; -GABA100C PO; -METO50TA16 PO; +NIFE30TA2 PO; +PANT40TA2 PO; +PRAZ1CAP2 PO; +PRAZ2CAP2 PO; +RIVA10TA PO; +TRAZ-214 PO
[2018-06-26 20:01] VITALS: BP 144/98
--- NOTE | 2018-06-26 20:01 | NUR ---
INITIAL CIWA 27 Patient currently has a CIWA of 27. Nausea, gross tremors, diaphoresis, high anxiety and agitation, some numbness/tingling of his fingers. Patient's face is flushed. Will given medications as ordered, will continue to monitor.
[2018-06-26] MEDS ORDERED: diphenhydrAMINE 50 MG CAPSULE PO PRN (20:30)
[2018-06-26] MEDS ORDERED: ACETAMINOPHEN 325 MG TABLET PO PRN (20:30)
[2018-06-26] MEDS ORDERED: 5 DAY TAPER OF LORAZEPAM -SERENITY PROTOCOL PO PRN (20:30)
[2018-06-26] MEDS ORDERED: DICYCLOMINE HCL 20 MG TABLET PO PRN (20:30)
[2018-06-26] MEDS ORDERED: MIRALAX 17 GM POWD.PACK PO PRN (20:30)
[2018-06-26] MEDS ORDERED: LORAZEPAM 2 MG/1 ML VIAL IM PRN (20:30)
[2018-06-26] MEDS ORDERED: CLONIDINE HCL 0.1 MG TABLET PO PRN (20:30)
[2018-06-26] MEDS ORDERED: THIAMINE HCL 200 MG/2 ML VIAL IM ONE (20:30)
[2018-06-26] MEDS ORDERED: LOPERAMIDE HCL 2 MG CAPSULE PO PRN ×2 (20:30)
[2018-06-26] MEDS ORDERED: MAGNESIUM HYDROXIDE 30 ML LIQUID UDC PO PRN (20:30)
[2018-06-26] MEDS ORDERED: LORAZEPAM 1 MG TABLET PO PRN (20:30)
[2018-06-26] MEDS: ONDANSETRON ODT 4 MG TAB.RAPDIS SL PRN (20:38)
--- NOTE | 2018-06-26 20:38 | NUR ---
PRN ZOFRAN Patient reports nausea, with no emesis. PRN Zofran given SL. Safety measures in place, call light within reach. Will monitor for effectiveness.
[2018-06-26] MEDS: LORAZEPAM 1 MG TABLET PO PRN ×2 (20:44→22:48)
--- NOTE | 2018-06-26 20:44 | NUR ---
PRN ATIVAN 2MG PRN Ativan 2mg given PO for CIWA greater than 16. Safety measures in place, side rails up x2, bed locked in low position, call light within reach. Will monitor for effectiveness.
[2018-06-26 20:56] LABS: BASOPHILS % (AUTO) 0.9 % (0.0-2.0); EOSINOPHILS # (AUTO) 0.2 K/uL (0.0-0.7); EOSINOPHILS % (AUTO) 3.6 % (0.0-7.0); HEMATOCRIT 47.7 % (36.7-47.1); HEMOGLOBIN 16.5 g/dL (12.5-16.3); LYMPHOCYTES # (AUTO) 1.3 K/uL (20.0-40.0); LYMPHOCYTES % (AUTO) 24.5 % (20.5-51.5); MEAN CORPUSCULAR HEMOGLOBIN 36.1 uug (23.8-33.4); MEAN CORPUSCULAR HGB CONC 35 g/dL (32.5-36.3); MEAN CORPUSCULAR VOLUME 104.2 fL (73.0-96.2); MONOCYTES # (AUTO) 0.5 K/uL (2.0-10.0); MONOCYTES % (AUTO) 8.9 % (0.0-11.0); NEUTROPHILS # (AUTO) 3.2 K/uL (1.8-8.9); NEUTROPHILS % (AUTO) 62.1 % (38.5-71.5); PLATELET COUNT (AUTO) 215 K/uL (152-348); RED BLOOD CELL COUNT(AUTO) 4.58 MIL/uL (4.06-5.63); WHITE BLOOD COUNT (AUTO) 5.2 K/uL (3.6-10.2)
--- NOTE | 2018-06-26 21:08 | NUR ---
PRN ZOFRAN REASSESSMENT Patient reports that his nausea has improved. PRN Zofran noted to be effective. Safety measures in place, bed locked in low position, side rails up x2, call light within reach. Will continue to monitor.
[2018-06-26 21:10] LABS: *AMPHETAMINE, URINE NEGATIVE (NEGATIVE); *BARBITURATE, URINE NEGATIVE (NEGATIVE); *CANNABINOID, URINE NEGATIVE (NEGATIVE); *COCCAINE, URINE NEGATIVE (NEGATIVE); *OPIATE, URINE NEGATIVE (NEGATIVE); *PHENCYCLIDINE SCREEN,URINE NEGATIVE (NEGATIVE)
[2018-06-26 21:12] LABS: BILIRUBIN,TOTAL 0.6 mg/dL (0.2-1.0); CREATININE 1.1 mg/dL (0.6-1.3); MAGNESIUM 1.8 mg/dL (1.8-2.4); POTASSIUM 3.3 mmol/L (3.5-5.1); TOTAL PROTEIN, SERUM 8.7 g/dL (6.4-8.2)
[2018-06-26 21:34] LABS: THYROID STIMULATING HORMONE 1.593 mIU/mL (0.358-3.740)
--- NOTE | 2018-06-26 21:44 | NUR ---
PRN ATIVAN REASSESSMENT, CIWA 25 Patient currently has a CIWA of 25. PRN Ativan 2mg was slightly effective in reducing CIWA score. Will continue to monitor patient. SN to give meds as ordered.
--- NOTE | 2018-06-26 21:45 | NUR ---
ADMISSION NOTE Patient is a 53-year-old male admitted today 06/26/18 for ETOH withdrawal; arrived on the unit at 2000. Patient was seen at intake by GABE Hollins, who wrote the pre-admission note. Patient is currently mildly intoxicated, as evidence by of 0.29 percent ethyl alcohol. Patient appears disheveled, unshaven, unkempt, flushed, and diaphoretic. Patient is visibly tremulous and anxious. Patient is alert and oriented x4, ambulatory with a steady gait. Patient states that when he experiences withdrawal, "I get extremely, extremely anxious. I get tremors, chest tightness, nausea, and depression. Sometimes my chest gets so tight it's hard to breathe." Patient states that his last drink was 1830 but reports, I already feel like Im withdrawing. Patient denies a history of withdrawal induced seizures, although he did have a seizure in 2011 related to a new medication his doctor prescribed at the time. Patient states that he does not recall the medication name, however, it was discovered that he had a brain aneurysm and a craniotomy was necessary to treat the aneurysm. No seizures occurred after that incident. Substance Abuse history: 1. ETOH (Vodka) 750mL daily, for the past 2.5 weeks. Patient reports, some days it was a little more, others a little less, but on average about 750mL a day. Patient states, "I started drinking when I was 8." Patients last drink was at 1830, 2 shots, which is approximately 90mL. Patient states that he is back in treatment today for my daughter. I need to get sober for my kids; my daughter means the world to me." When asked how this admission would be different, patient responded, "I'm not sure. I just know I have to get this anxiety to go away." Patient reports that he continued to attend AA meetings although he would drink prior to attending. Patient reports attending several different treatment centers. Most recent treatment history as follows: [facility] in 2016 ([place], [place]), [facility] in 2016, [facility] ([place]) 2016, [facility] 2016, [facility] June 01-June 07, 2018. Patient was sober for 4 years [id number], but has struggled with sobriety for many years. Patient states, Conchita been a little depressed lately, mostly because of employment issues. I cant keep doing the job that Im used to. Transitioning into [facility] makes me feel like I have less purpose; like my life isnt meaningful anymore. 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 He feels a lot of anxiety moving forward into this next season of his life because theres a lot of uncertainty. Despite many attempts at sobriety, the patient finds it difficult to stop drinking due to multiple factors that add to his anxiety. Aside from employment future uncertainty, the patient has battled night terrors for the past 22-23 years. 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 The patient also feels burdened by his daughters accident 4 years ago that left her a paraplegic. He verbalizes feeling sadness over the loss of his , who left him due to his drinking. The patient feels there are many other factors that contribute to his stress and anxiety. His support system consists of his sponsor, therapist (Luiz), and his children. However, when asked if he felt it was a sufficient support system he responded, I could probably use more, but thats what I have now. Patient has past medical history of anxiety, hypertension, GERD, on and off hypercholesterolemia, insomnia and night terrors. Patient has a primary physician, DR. Boswell at [facility], a GP who is an bulk gas specialist, a therapist named Luiz ([facility]), and a swatcher at [facility] (recently, as of 2 months ago). Patient is 5 10 and weighs 180lbs per standing scale. Patients skin is intact, PERRLA, lung sounds clear bilaterally, abdomen is soft and non-tender. Patient denies pain at this time. Initial vital signs as follows: BP 144/98, HR 107, RR 20, temp 98.7,O2 Sat 97% on RA. Patient has been oriented to the unit, teaching provided and policies reviewed. Vitamin B1 IM administered, along with PRN Zofran SL, and PRN Ativan 2mg for initial CIWA of 27. Patient is on fall and seizure precautions, safety measures in place, side rails up x2, bed locked in low position, call light within reach. Will continue to monitor.
[2018-06-26] MEDS ORDERED: TRAZODONE 100 MG TABLET PO ONE (22:30)
--- NOTE | 2018-06-26 22:48 | NUR ---
PRN ATIVAN 2MG Current CIWA 24. PRN Ativan 2mg given PO for CIWA greater than 16. Safety measures in place, side rails up x2, bed locked in low position, call light within reach. Will monitor for effectiveness.
[2018-06-26] MEDS ORDERED: POTASSIUM CHLORIDE 20 MEQ TAB.PRT.SR PO ONE (23:00)
--- NOTE | 2018-06-26 23:23 | NUR ---
ONE TIME TRAZODONE Per patient's request, one time Trazodone 100mg order was obtained and given PO. Safety measures in place, side rails up x2, bed locked in low position, call light within reach. Will continue to monitor.
--- NOTE | 2018-06-26 23:50 | NUR ---
CIWA 25 Patient has a CIWA score of 25, for anxiety, restlessness, diaphoresis, tremors, tingling/numbness of fingers, and previous complaint of nausea. Will continue to monitor and administer meds as ordered.
--- NOTE | 2018-06-26 23:50 | NUR ---
PRN ATIVAN REASSESSMENT Current CIWA 25. Patient continues to be very anxious, agitated, restless, diaphoretic, and nervous/worrisome. PRN Ativan was not effective in reducing patient's CIWA score. Will continue to monitor. Will continue to administer medications as ordered. Safety measures in place, call light within reach.
[2018-06-26] MEDS: PRAZOSIN HCL 1 MG CAPSULE PO SCH (23:57)
[2018-06-27] VITALS: BP 131/81
--- NOTE | 2018-06-27 00:23 | NUR ---
ONE TIME TRAZODONE REASSESSMENT Patient is observed sleeping in bed, eyes closed, snoring quietly. Respirations are even and unlabored. Safety measures in place, side rails up x2, bed locked in low position, call light within reach. Will continue to monitor.
[2018-06-27 04:00] VITALS: BP 126/77
--- NOTE | 2018-06-27 04:00 | NUR ---
CIWA 15 Patient is awake, with CIWA of 15. Patient reports anxiety, agitation, diaphoresis, and is visibly tremulous. SN to administer medication as ordered.
--- NOTE | 2018-06-27 04:16 | NUR ---
PRN ATIVAN 1MG PRN Ativan 1mg given PO for CIWA 5-15. Safety measures in place, side rails up x2, bed locked in low position, call light within reach. Will monitor for effectiveness.
--- NOTE | 2018-06-27 05:16 | NUR ---
PRN ATIVAN REASSESSMENT Patient is observed sleeping in bed, eyes closed, respirations even and unlabored. Unable to reassess at this time, unable to perform CIWA assessment at this time due to patient sleeping. Will assess when patient is awake. Safety measures in place, side rails up x2, bed locked in low position, call light within reach. Will continue to monitor.
--- NOTE | 2018-06-27 06:13 | NUR ---
CIWA 19 Patient is awake, complaining of increased anxiety, restlessness, agitation and worry. Patient is visibly tremulous, diaphoretic, and flushed. SN to give medications as ordered.
[2018-06-27] MEDS: LORAZEPAM 1 MG TABLET PO PRN ×2 (06:15→10:31)
--- NOTE | 2018-06-27 06:15 | NUR ---
PRN ATIVAN 2MG PRN Ativan 2mg given PO for CIWA greater than 16. Safety measures in place, call light within reach. Will monitor for effectiveness.
[2018-06-27] MEDS: IBUPROFEN 400 MG TABLET PO PRN ×2 (06:19→17:10)
--- NOTE | 2018-06-27 06:19 | NUR ---
PRN MOTRIN Patient reports sinus pressure and requests relief. PRN Motrin 400mg given PO. Safety measures in place, side rails up x2, bed locked in low position, call light within reach. Will monitor for effectiveness.
--- NOTE | 2018-06-27 07:15 | NUR ---
PRN ATIVAN REASSESSMENT Unable to reassess at this time. Patient is sleeping with eyes closed, respirations even and unlabored. Safety measures in place, side rails up x2, bed locked in low position, call light within reach. Will endorse to day shift to continue monitoring.
--- NOTE | 2018-06-27 07:19 | NUR ---
PRN MOTRIN REASSESSMENT Unable to reassess at this time due to patient sleeping. Safety measures in place, side rails up x2, bed locked in low position, call light within reach. Will endorse to day shift.
[2018-06-27] MEDS: PANTOPRAZOLE SODIUM 40 MG TABLET.DR PO SCH (07:30)
--- NOTE | 2018-06-27 07:30 | NUR ---
END OF SHIFT Patient is a 53-year-old male admitted yesterday, 06/26/18 , for ETOH withdrawal. Patient is scheduled to start a 5-day Ativan taper today. Patients last CIWA was 19 this morning at 0613. Patient received the following PRN medications during the shift: PRN Zofran SL, PRN Ativan 2mg x3, PRN Ativan 1 mg, a one-time Trazodone, and PRN Motrin 400mg. These medications were effective in maintaining patients CIWA scores and reducing anxiety. Patient was able to sleep; Patient slept for 6 hrs, total intake of 791mL, void x2, stool x0. Patient is on fall and seizure precautions, with no history of withdrawal induced seizures. Safety measures in place, side rails up x2, bed locked in low position, call light within reach. Will endorse to day shift.
--- NOTE | 2018-06-27 07:30 | NUR ---
Start of Shift: Patient is 53 yr old male who was admitted to [facility] on 06/26/18 for a medically supervised withdrawal from Alcohol ( Vodka ). He is asleep in bed at this time , breathing even and unlabored, side rails up x2. PRN Medications given on PM shift : Ativan 2MG PO x3, Ativan 1MG PO x1, Zofran 4MG SL, Motrin and Trazodone. Per report patient has been anxious and restless throughout shift supervisor rn requiring numerous PRN Ativan, he is not on any taper as of yet. Last CIWA was 19 @ 0615, he slept intermittently for 6 hours. Continue to follow MD plan of care and offer support as needed.
[2018-06-27 08:00] VITALS: BP 146/99
--- NOTE | 2018-06-27 08:10 | NUR ---
WA 23 Patients withdrawal symptoms consist of constant nausea and 1 x vomit, severe bilateral hand tremors, increased anxiety and agitation, headache, decreased appetite, lethargy and insomnia. Scheduled 2 MG Ativan PO given, encourages to sip fluids and try to rest.
[2018-06-27] MEDS: THIAMINE HCL 100 MG TABLET PO SCH (08:13)
[2018-06-27] MEDS: MULTIVITAMINS,THERAPEUTIC TABLET PO SCH (08:13)
[2018-06-27] MEDS: ATORVASTATIN 20 MG TABLET PO SCH (08:13)
[2018-06-27] MEDS: FOLIC ACID 1 MG TABLET PO SCH (08:13)
[2018-06-27] MEDS: ONDANSETRON 4 MG/2 ML VIAL IM PRN ×2 (08:14→14:06)
--- NOTE | 2018-06-27 08:15 | NUR ---
PRN ZOFRAN IM Zofran 4 MG IM given in Right deltoid for nausea/ vomiting x1
[2018-06-27] MEDS: NIFEdipine XL 30 MG TABSR PO SCH (08:34)
[2018-06-27] MEDS ORDERED: LORAZEPAM 1 MG TABLET PO SCH (09:00)
[2018-06-27] MEDS ORDERED: Medication Not On Formulary EA (Rivaroxaban (Xarelto) 1 TAB) PO SCH (09:00)
[2018-06-27] MEDS ORDERED: TUBERCULIN,PURIF.PROT.DERIV. 5 TU/0.1 ML TEST ID ONE (09:00)
[2018-06-27] MEDS ORDERED: DULOXETINE 60 MG CAPSULE.DR PO SCH (09:00)
--- NOTE | 2018-06-27 09:15 | NUR ---
PRN Zofran Reassess Vomiting has ceased but nausea is constant, will continue to monitor
[2018-06-27] MEDS: DULOXETINE 30 MG CAPSULE.DR PO SCH (09:19)
[2018-06-27] MEDS: ONDANSETRON ODT 4 MG TAB.RAPDIS SL PRN (10:07)
--- NOTE | 2018-06-27 10:07 | NUR ---
PRN Zofran 4 MG SL Given for episodes of nausea and vomiting, will reassess and monitor.
--- NOTE | 2018-06-27 10:30 | NUR ---
PRN Ativan 2MG PO Ativan 2 MG Po given for CIWA 23 withdrawal symptoms present as severe anxiety, agitation, nausea, vomiting, bilateral hand tremors , sensitivity to light, difficulty thinking clearly, decreased appetite and flushed face.
--- NOTE | 2018-06-27 11:07 | NUR ---
PRN Reassess Nausea improved/emesis ceased
[2018-06-27] MEDS ORDERED: DIAZEPAM 5 MG TABLET PO PRN (11:30)
[2018-06-27] MEDS ORDERED: DIAZEPAM 10 MG TABLET PO PRN (11:30)
--- NOTE | 2018-06-27 11:30 | NUR ---
PRN Ativan Reassess Patient still presents with increased anxiety and agitation, restlessness, sensitivity to light and sound, MD changing taper to Valium and will administer at 1200.
[2018-06-27 12:00] VITALS: BP 170/109
--- NOTE | 2018-06-27 12:00 | NUR ---
[facility] 24 withdrawal symptoms include extreme anxiety, irritability, agitation, bilateral hand tremors, constant nausea, decreased appetite, sensitivity to light and sound and restlessness. Scheduled taper meds Valium 10mg PO given along with clonidine 0.1mg PO, BP 170/109, HR 95 will monitor and reassess.
[2018-06-27] MEDS: DIAZEPAM 10 MG TABLET PO SCH ×3 (12:01→20:41)
--- NOTE | 2018-06-27 12:05 | NUR ---
PRN Clonidine 0.1mg PO Given for BP 170/109, HR 95 will reassess and continue to monitor.
[2018-06-27] MEDS ORDERED: 5 DAY TAPER VALIUM-SERENITY PROTOCOL PO PRN (13:00)
--- NOTE | 2018-06-27 13:00 | NUR ---
PRN Clonidine Reassess BP Rechecked and now 157/89 ( was 170/109 ) Clonidine 0.1 MG PO effective. HR 68 MD changed order to Q4H PRN
--- NOTE | 2018-06-27 13:01 | NUR ---
Communication Change Clonidine 0.1mg PO Q6H PRN to Clonidine 0.1MG PO Q4H PRN
[2018-06-27] MEDS: DIAZEPAM 10 MG TABLET PO PRN ×2 (14:05→18:44)
--- NOTE | 2018-06-27 14:06 | NUR ---
PRN Valium/Zofran IM Valium 20 MG PO given for CIWA 25, pt presents with constant nausea / vomiting, increased anxiety/agitation, bilateral hand tremors, decreased appetite, diaphoresis and sensitivity to light and sound. Will reassess and continue to monitor
--- NOTE | 2018-06-27 15:06 | NUR ---
PRN Reassess Patient is asleep in bed, breathing even and unlabored, snoring gently. Will continue to monitor.
[2018-06-27 16:00] VITALS: BP 163/104
--- NOTE | 2018-06-27 16:00 | NUR ---
CIWA 26 Patient presents with heartburn, increased anxiety/ agitation, diaphoresis, decreased appetite, insomnia, restlessness, his affect is flat and his mood is depressed, encouraged to talk to therapist when he is feeling up to it, Maalox 30cc PO given for heartburn and scheduled Valium 10mg to be given now.
[2018-06-27] MEDS: MAG HYDROX/AL HYDROX/SIMETH 30 ML LIQUID UDC PO PRN (16:06)
--- NOTE | 2018-06-27 16:06 | NUR ---
PRN Maalox Maalox 30 cc PO given for c/o heartburn, will continue to monitor and assess.
[2018-06-27] MEDS: RIVAROXABAN 10 MG TABLET PO SCH (16:27)
--- NOTE | 2018-06-27 16:30 | NUR ---
PRN Clonidine Clonidine 0.1MG PO given for BP 163/104, will reassess and monitor.
[2018-06-27] MEDS: CLONIDINE HCL 0.1 MG TABLET PO PRN (16:32)
--- NOTE | 2018-06-27 17:10 | NUR ---
PRN Motrin Motrin 400 MG PO given for headache 5/10 will reassess and monitor.
[2018-06-27] MEDS ORDERED: Medication Not On Formulary EA (Prazosin Hcl 1 CAP) PO SCH (18:00)
--- NOTE | 2018-06-27 18:10 | NUR ---
PRN Motrin Reassess Patient states Motrin was ineffective, headache still 5/10
--- NOTE | 2018-06-27 18:40 | NUR ---
PRN Valium Valium 20 MG PO given for CIWA 24 Patients withdrawal symptoms consist of : headache, severe anxiety, insomnia, restlessness, bilateral hand tremors, decreased appetite, constant nausea and diaphoresis.
--- NOTE | 2018-06-27 18:55 | NUR ---
End Of Shift : Patient is a 53 yr old male who was admitted to [facility] on 06/26/18 for a medically supervised withdrawal from Alcohol ( Vodka ). He has been placed on a 5 day Valium taper and this is day 1. Today his withdrawal symptoms have been severe: Constant nausea, vomiting, headache, heartburn, increased blood pressure, high anxiety and agitation, decreased appetite, lethargy and insomnia, he has a sad depressed affect and psychiatrist restarted him on Cymbalta 90 MG Po/ day. PRN medications required this shift: Zofran 4 MG IM x2, Zofran 4 MG SL, Ativan 2MG PO, Clonidine 0.1 MG Po x2, Maalox 30 cc PO, Motrin 600 MG PO and Valium 20 MG PO x2 . He takes Xarelto 20 MG PO daily for past medical history of DVT x6. He has isolated in his room all shift trying to rest. He had a fluid intake of 2000ML, 4 Voids and 2 BM. Last CIWA 24 @ 1840. Continue to follow MD plan of care and offer support as needed. Endorsed to warehouse worker 2nd shift.
--- NOTE | 2018-06-27 19:15 | NUR ---
Start of Shift Note: Patient is a 53 y.o male admitted on 06/26/18 for medically supervised withdrawal from ETOH use. He is alert & oriented x3. He is in a disheveled stated, unshaved and uncombed hair. Room is messy and malodorous with scattered clothes and empty bottles and food throughout the room. He appears flushed, skin is moist and clammy, anxious, agitated, and noted with fine tremors. He denies hallucinations at this time. He reports fatigue d/t not being able to sleep last night and today. Per report, he is isolative and withdrawn and stayed in his room most of the shift. He did not attend any groups today d/t his withdrawal symptoms. He was started his 5-day Valium taper today and tolerating well. Last CIWA is 24. He received PRN Zofran IM 4mg x2, Zofran 4mg SL, Ativan 2mg, Clonidine 0.1mg x2, Valium 20mg x2, Motrin 400mg and Maalox during the day.Educated pt of current plan of care for the night and medication regimen and verbalized understanding. Continue to encourage pt to increase fluid intake. Safety measures in place. Bed locked in lowest position. call light within pt's reach. Will continue to monitor patient.
[2018-06-27 20:00] VITALS: BP 126/83
--- NOTE | 2018-06-27 20:00 | NUR ---
CIWA 19 Pt currently awake upon assessment and presented with anxiety, agitation, flushed face, moist and clammy skin, restlessness, slight nausea, fatigue, & fine tremors. Pt denies any pain/discomfort. No hallucinations noted. Pt is alert & oriented x3, he is not sure of the date. CIWA 19 noted at this time. Safety measures in place. Will continue to monitor patient.
[2018-06-27] MEDS: TRAZODONE 100 MG TABLET PO SCH (20:41)
[2018-06-27] MEDS: PRAZOSIN HCL 1 MG CAPSULE PO SCH (20:41)
[2018-06-27] MEDS: QUETIAPINE FUMARATE 100 MG TABLET PO SCH (20:41)
[2018-06-28] VITALS: BP 118/76
--- NOTE | 2018-06-28 04:00 | NUR ---
VITALS/CIWA deferred Patient refused vitals at this time. Patient asleep in bed and appears comfortable. Unable to assess CIWA at this time and will reassess when awake. Safety measures in place. will continue to monitor.
[2018-06-28] MEDS: PANTOPRAZOLE SODIUM 40 MG TABLET.DR PO SCH (06:47)
--- NOTE | 2018-06-28 07:19 | NUR ---
End of Shift Note: Patient is a 53 y.o male admitted on 06/26/18 for medically supervised withdrawal from ETOH use. . He presented with flushed face, sweating, anxiety, agitation, nausea, and fine tremors. He continues to be on a 5-day Valium taper and tolerating well. Last CIWA is 15. He did not received any PRN medications on my shift. Pt slept for a total of 8 hours. Fluid intake is 700 ml, Voided 3x with 1x bowel movement. All needs attended & met. Safety measures in place. Will dicuss all pertinent information to incoming nurse.
--- NOTE | 2018-06-28 07:20 | NUR ---
Start of Shift Patient is a 53 yr old male who was admitted to [facility] on 06/26/18 for a medically supervised withdrawal from Alcohol, he has been placed on a 5 day Valium taper and this is day 2. No PRN medications were required or requested on PM shift, he slept for 8 hrs and last CIWA was 15. Currently he is awake laying in bed , lab at bedside drawing blood, he states " I didn't sleep good last night, I'm so anxious". Patient is disheveled and unkempt, encouraged to get out of bed today, take a shower and get some fresh air outside instead of lying in bed all day, patient agreed. Continue to follow MD plan of care and offer support as needed.
[2018-06-28 08:00] VITALS: BP 126/82
--- NOTE | 2018-06-28 08:00 | NUR ---
CIWA 13 Patient presents with anxiety, agitation, diaphoresis, restlessness, decreased appetite, flushed face, he is disheveled and unkempt. scheduled AM medication given and redirected to shower and change clothes.
[2018-06-28] MEDS: THIAMINE HCL 100 MG TABLET PO SCH (08:05)
[2018-06-28] MEDS: DIAZEPAM 10 MG TABLET PO SCH ×3 (08:05→20:29)
[2018-06-28] MEDS: MULTIVITAMINS,THERAPEUTIC TABLET PO SCH (08:05)
[2018-06-28] MEDS: NIFEdipine XL 30 MG TABSR PO SCH (08:05)
[2018-06-28] MEDS: ATORVASTATIN 20 MG TABLET PO SCH (08:05)
[2018-06-28] MEDS: DULOXETINE 30 MG CAPSULE.DR PO SCH (08:05)
[2018-06-28] MEDS: FOLIC ACID 1 MG TABLET PO SCH (08:05)
[2018-06-28 08:22] LABS: BILIRUBIN,TOTAL 1.3 mg/dL (0.2-1.0); CREATININE 0.7 mg/dL (0.6-1.3); POTASSIUM 3.6 mmol/L (3.5-5.1); TOTAL PROTEIN, SERUM 6.4 g/dL (6.4-8.2)
[2018-06-28] MEDS ORDERED: LORAZEPAM 1 MG TABLET PO SCH (09:00)
--- NOTE | 2018-06-28 11:00 | NUR ---
PRN Valium Valium 20mg PO given for CIWA 17 Patient presents with extreme anxiety/panic, diaphoresis, feeling of tightness in chest, decreased appetite. He is disheveled and unkempt and displays a sad depressed affect. Addendum: 06/28/18 at 1548 by BARBARA CALVILLO RN Maalox 30cc given for c/o heartburn
[2018-06-28] MEDS: DIAZEPAM 10 MG TABLET PO PRN (11:01)
[2018-06-28] MEDS: MAG HYDROX/AL HYDROX/SIMETH 30 ML LIQUID UDC PO PRN (11:01)
[2018-06-28 12:00] VITALS: BP 142/98
[2018-06-28] MEDS: ENSURE WITH FIBER 237 ML LIQUID (CHOCOLATE) PO SCH ×2 (12:00→17:00)
--- NOTE | 2018-06-28 12:00 | NUR ---
PRN Reassess CARRIEWA now 15 ( was 17) patient states he feels less panic and tightness in chest has eased off, Valium 20 MG PO PRN effective Addendum: 06/28/18 at 1549 by BARBARA CALVILLO RN Maalox effective in easing heartburn
--- NOTE | 2018-06-28 12:00 | NUR ---
CIWA 15 Patient presents with increased anxiety and sense of panic, diaphoresis, decreased appetite and depressed flat affect. BP has increased - 142/98, will give clonidine 0.1mg PO Valium 20 MG PO was given 1 hr ago and had moderate effect.
[2018-06-28 12:06] LABS: HEPATITIS B SURFACE AG Negative (Negative)
[2018-06-28] MEDS: CLONIDINE HCL 0.1 MG TABLET PO PRN ×2 (12:12→16:44)
--- NOTE | 2018-06-28 12:12 | NUR ---
PRN Clonidine Clonidine 0.1 MG PO given for BP 142/98, will reassess
--- NOTE | 2018-06-28 13:12 | NUR ---
PRN Reassess BP Now 138/84, clonidine 0.1 MG PO effective
[2018-06-28 16:00] VITALS: BP 146/103
--- NOTE | 2018-06-28 16:00 | NUR ---
CIWA 14 Patient presents with increased anxiety and irritability, diaphoresis, decreased appetite and depressed flat affect. He is disheveled and odorous, offered shower but pt declined.
[2018-06-28] MEDS: HYDROXYZINE PAMOATE 25 MG CAPSULE PO PRN (16:44)
[2018-06-28] MEDS: RIVAROXABAN 10 MG TABLET PO SCH (16:44)
--- NOTE | 2018-06-28 16:45 | NUR ---
PRN Clonidine/Vistaril Clonidine 0.1 MG PO given for BP 146/103 Vistaril 50 MG PO given for reports of increased anxiety/irritability Will reassess
[2018-06-28 17:00] VITALS: BP 142/88
--- NOTE | 2018-06-28 17:42 | NUR ---
PRN Reassess Patient is asleep soundly in bed, breathing even and unlabored, side rails upx2, call light within reach.
--- NOTE | 2018-06-28 18:53 | NUR ---
End Of Shift: Patient is a 53 yr old male who was admitted to [facility] on 06/26/18 for a medically supervised withdrawal from Alcohol ( Vodka), he has been placed on a 5 day Valium taper and this is day 2. Today the patient has been isolative to his room most of the shift x1 to the patio to smoke, he complains of increased anxiety and irritability, lethargy, decreased appetite, bilateral hand tremors, he is disheveled and unkempt, shower and clean clothing offered to patient but he declined shower for the time being, encouraged to perform self cares and personal hygiene. He has a depressed flat affect , therapist asked to have 1:1 session with him but he was asleep. PRN medications given on this shift: Valium 20 MG PO, Maalox 30 CC PO and Clonidine 0.1 MG PO x2 and Vistaril 50 MG Po. He did not go to any groups today and did not interact with his peers. He had a fluid intake of 1700 ML, 5 Voids and 1 BM. Last CIWA 14 @ 1600. Continue to follow MD plan of care and offer support as needed. [facility]orsed to [facility] shift lead.
--- NOTE | 2018-06-28 19:30 | NUR ---
START OF SHIFT Pt is a 53 yr old male admitted on 06/26/18 for a medically supervised withdrawal from ETOH. Pt continues on 5 day Valium taper and is tolerating well. Per report, pt has been isolative to his room most of time, out for needs only, mood is sad and depressed, physical appearance is disheveled and unkempt.Pt encouraged to perform ADLs and maintain personal hygiene. PRN medications given on day shift include Valium , Maalox , Clonidine and Vistaril. Last CIWA 14 @ 1600. Pt received lying in bed,c/o feeing increasingly anxious and stated that he had diarrhea x 2.No c/o pain noted. Will continue to medicate per orders and monitor for safety.
[2018-06-28 20:00] VITALS: BP 132/96
--- NOTE | 2018-06-28 20:00 | NUR ---
CIDE 12 Patient has increased anxiety and irritability,has decreased appetite,dinner tray at bedside is untouched,said he is not hungry,mood is sad and depressed with flat affect.
[2018-06-28] MEDS: PRAZOSIN HCL 1 MG CAPSULE PO SCH (20:29)
[2018-06-28] MEDS: QUETIAPINE FUMARATE 100 MG TABLET PO SCH (20:29)
[2018-06-28] MEDS: TRAZODONE 100 MG TABLET PO SCH (20:29)
--- NOTE | 2018-06-28 20:30 | NUR ---
PRN MED Pt c/o having diarrhea x 2,PRN Imodium given as ordered,will continue to monitor for effectiveness.
--- NOTE | 2018-06-28 21:30 | NUR ---
PRN F/U PT IS NOT C/O DIARRHEA ANY MORE.WILL CONTINUE TO MONITOR.
[2018-06-29] VITALS: BP 129/84
--- NOTE | 2018-06-29 | NUR ---
CIWA DEFERRED Pt is sleeping comfortably in bed,breathing is even and non labored,v/s are stable.CIWA deferred due to pt being asleep; all safety measures in place,call [place] within reach,will continue to monitor.
[2018-06-29 04:00] VITALS: BP 120/88
[2018-06-29] MEDS: PANTOPRAZOLE SODIUM 40 MG TABLET.DR PO SCH (06:56)
--- NOTE | 2018-06-29 07:09 | NUR ---
END OF SHIFT Pt is a 53 yr old male admitted on 06/26/18 for a medically supervised withdrawal from ETOH. Pt continues on 5 day Valium taper and is tolerating well. Pt has been in his room all time.ADLs and grooming are poor. PRN Imodium was given for c/o diarrhea and was effective. Last CIWA 12 @ 2000. Mid night and 0400 assessments deferred due to Pt being asleep.Pt slept 8 hrs,fluid intake was 1210 mls,voided x 2 .No c/o pain noted. Pt endorsed to oncoming shift in a stable condition.
--- NOTE | 2018-06-29 07:35 | NUR ---
Start of Shift Patient is a 53 yr old male who was admitted to [facility] on 06/26/18 for a medically supervised withdrawal from Alcohol ( Vodka), he has been placed on a 5 day Valium taper and this is day 3. PRN medications given on PM shift : Imodium for diarrhea, he slept for 8+ hours and last CIWA was 12. he is asleep at this time, breathing even and unlabored, side rails up x2, call light within reach. Continue to follow MD plan of care and offer support as needed.
[2018-06-29 08:00] VITALS: BP 133/87
--- NOTE | 2018-06-29 08:00 | NUR ---
[facility] 13 Patients withdrawal symptoms present as increased anxiety, agitation, lethargy, decreased appetite, flushed face, he is disheveled and unkempt , odorous and unshaven. Scheduled AM medications given.
[2018-06-29] MEDS: NIFEdipine XL 30 MG TABSR PO SCH (08:16)
[2018-06-29] MEDS: DIAZEPAM 5 MG TABLET PO SCH ×4 (08:16→20:44)
[2018-06-29] MEDS: THIAMINE HCL 100 MG TABLET PO SCH (08:16)
[2018-06-29] MEDS: FOLIC ACID 1 MG TABLET PO SCH (08:16)
[2018-06-29] MEDS: DULOXETINE 30 MG CAPSULE.DR PO SCH (08:16)
[2018-06-29] MEDS: ATORVASTATIN 20 MG TABLET PO SCH (08:17)
[2018-06-29] MEDS: MULTIVITAMINS,THERAPEUTIC TABLET PO SCH (08:17)
[2018-06-29] MEDS: ENSURE WITH FIBER 237 ML LIQUID (CHOCOLATE) PO SCH ×3 (08:43→17:58)
[2018-06-29] MEDS ORDERED: LORAZEPAM 1 MG TABLET PO SCH (09:00)
[2018-06-29 12:00] VITALS: BP 116/75
--- NOTE | 2018-06-29 12:20 | NUR ---
[facility] 13 Patients withdrawal symptoms present as increased anxiety, agitation, lethargy, decreased appetite, flushed face, he is disheveled and unkempt. Scheduled 1pm medications will be given
[2018-06-29 16:00] VITALS: BP 150/107
--- NOTE | 2018-06-29 16:00 | NUR ---
[facility] 13 Patients withdrawal symptoms present as increased anxiety, agitation, lethargy, bilateral hand tremors and flushed face, he is disheveled and unkempt.
--- NOTE | 2018-06-29 16:06 | NUR ---
Prompted client to attend group sessions rather than isolate in his room all day.
[2018-06-29] MEDS: RIVAROXABAN 10 MG TABLET PO SCH (16:38)
--- NOTE | 2018-06-29 17:55 | NUR ---
PRN Vistaril/Clonidine Vistaril 0.1MG PO given for reports of increased anxiety Heart Rate 100 Clonidine 0.1 MG PO given for BP 150/107
[2018-06-29] MEDS: HYDROXYZINE PAMOATE 25 MG CAPSULE PO PRN (17:57)
[2018-06-29] MEDS: CLONIDINE HCL 0.1 MG TABLET PO PRN (17:57)
--- NOTE | 2018-06-29 18:48 | NUR ---
PRN Reassess BP now 130/87, HR 94 Vistaril 50 MG PO and Clonidine 0.1 MG PO effective
--- NOTE | 2018-06-29 18:51 | NUR ---
End Of Shift : Patient is a 53 yr old male who was admitted to [facility] on 06/26/18 for a medically supervised withdrawal from Alcohol ( Vodka), he has been placed on a 5 day Valium taper and this is day 3. Today the patient has been isolative to his room most of the shift, he complains of increased anxiety and irritability, lethargy, decreased appetite, bilateral hand tremors, he is disheveled and unkempt, shower and clean clothing offered to patient but he declined shower , encouraged to perform self cares and personal hygiene. He has a depressed flat affect , therapist Mani had a 1:1 session with him . PRN medications given on this shift: Vistaril 50 MG PO and Clonidine 0.1 MG PO . He did not go to any groups today and did not interact with his peers. He had a fluid intake of 2000 ML, 4 Voids and 2 BM. Last CIWA 13 @ 1600. Continue to follow MD plan of care and offer support as needed. Endorsed to assembler 1st shift.
--- NOTE | 2018-06-29 19:30 | NUR ---
START OF SHIFT Pt is a 53 yr old male admitted on 06/26/18 for a medically supervised withdrawal from ETOH. Pt continues on 5 day Valium taper and is tolerating well.Per shift report, Pt has been isolative to his room most of the shift, he c/o of increased anxiety and irritability, lethargy, decreased appetite, bilateral hand tremor.Pt received on room,sitting in the chair, encouraged to take a shower but he declined ,stated that may be he will be ready tomorrow.Mood is sad and depressed,He worries about his children and said that his job gives him a lot of anxiety. All safety measures in place,call light is within reach,will continue to monitor.
[2018-06-29] MEDS: IBUPROFEN 400 MG TABLET PO PRN (19:57)
--- NOTE | 2018-06-29 19:58 | NUR ---
PRN MOTRIN 400 mg PO GIVEN FOR C/O BACK PAIN ,06/02.WILL MONITOR.
[2018-06-29 20:00] VITALS: BP 114/95
--- NOTE | 2018-06-29 20:00 | NUR ---
CIWA=13 Pt is feeling anxious,somewhat agitated,c/o feeling depressed and stressed out due multiple personal stressors related to his daughter and work.Deep breathing and relaxation techniques encouraged.Pt is going to smoke now,will be medicated upon return.
[2018-06-29] MEDS: TRAZODONE 100 MG TABLET PO SCH (20:42)
[2018-06-29] MEDS: QUETIAPINE FUMARATE 100 MG TABLET PO SCH (20:43)
[2018-06-29] MEDS: PRAZOSIN HCL 1 MG CAPSULE PO SCH (20:43)
--- NOTE | 2018-06-29 20:45 | NUR ---
PRN MED Pt stated that he was unable to sleep well last night,feels like his routine medications are not working;he is requesting for something else to help him sleep.PRN Benadryl given as ordered,will continue to monitor.
--- NOTE | 2018-06-29 21:00 | NUR ---
PRN MOTRIN IS EFFECTIVE.PAIN RELIEVED.
--- NOTE | 2018-06-29 21:45 | NUR ---
PRN F/U Pt is calm and resting in bed with eyes closed,appears to be in deep sleep,will continue to monitor.
[2018-06-30] VITALS: BP 118/76
--- NOTE | 2018-06-30 | NUR ---
CIWA DEFERRED/V/S REFUSED. Pt is sleeping comfortably in bed,breathing is even and non labored,v/s are stable.CIWA deferred due to pt being asleep;v/s refused; all safety measures in place,call [place] within reach,will continue to monitor.
[2018-06-30] MEDS: PANTOPRAZOLE SODIUM 40 MG TABLET.DR PO SCH (07:23)
--- NOTE | 2018-06-30 07:31 | NUR ---
END OF SHIFT Pt is a 53 yr old male admitted for a medically supervised withdrawal from ETOH. Pt continues on 5 day Valium taper and is tolerating well. Pt has been in his room all time.ADLs and grooming are poor. PRN Motrin and Benadryl were given and were effective.Last CIWA 13 @ 1999. Mid night and 0400 assessments deferred due to Pt being asleep.Pt slept 7 hrs,fluid intake was 1000 mls,voided x 2 . Pt endorsed to oncoming shift in a stable condition.
--- NOTE | 2018-06-30 07:49 | NUR ---
START OF SHIFT Pt is a 53 y/o M admitted on 06/26/18 for medically supervised withdrawal from ETOH. Pt continues on a 5 day Valium taper starting on 06/27/18 and tolerating well. Received pt A/Ox4, respirations even and unlabored, laying in bed, asking when meds are due. Pt C/O anxiety, agitation, restlessness, lethargy. Pt has a disheveled appearance, hair is unkempt, is malodorous, has a flat affect, a depressive and anxious mood, flushing, dysphoria, anhedonia, sweating, clammy skin, tremors noted. Multiple drink bottles, snack wrappers and clothes are around the room. Encouraged pt to maintain personal hygiene. Educated pt with plan of care and med regimen. Bed is on the lowest position with side rails x2 up and call light within reach. Safety measures in place. Will give endorsement to slot shift manager nurse.
[2018-06-30 08:00] VITALS: BP 114/81
--- NOTE | 2018-06-30 08:00 | NUR ---
CIMO assessment CIMO 13 @0800. Received pt A/Ox4, respirations even and unlabored, pt was laying in bed upon entering room, asking when meds are due. Pt C/O anxiety, agitation, restlessness, lethargy. Pt has a disheveled appearance, hair is unkempt, is malodorous, has a flat affect, has a depressive and anxious mood, flushing, dysphoria, anhedonia, sweating, clammy skin, tremors noted. Pt c/o pain on his sides. Scheduled meds and tylenol PRN to be administered.
[2018-06-30] MEDS: FOLIC ACID 1 MG TABLET PO SCH (08:33)
[2018-06-30] MEDS: MULTIVITAMINS,THERAPEUTIC TABLET PO SCH (08:33)
[2018-06-30] MEDS: DULOXETINE 60 MG CAPSULE.DR PO SCH (08:34)
[2018-06-30] MEDS: THIAMINE HCL 100 MG TABLET PO SCH (08:34)
[2018-06-30] MEDS: DIAZEPAM 5 MG TABLET PO SCH ×3 (08:34→21:02)
[2018-06-30] MEDS: ATORVASTATIN 20 MG TABLET PO SCH (08:34)
--- NOTE | 2018-06-30 08:34 | NUR ---
PRN Actaminophen 650 mg po given to pt c/o body aches and side pain. Will monitor and reassess.
[2018-06-30] MEDS: NIFEdipine XL 30 MG TABSR PO SCH (08:36)
[2018-06-30] MEDS: ENSURE WITH FIBER 237 ML LIQUID (CHOCOLATE) PO SCH ×3 (08:37→17:23)
[2018-06-30] MEDS ORDERED: DULOXETINE 30 MG CAPSULE.DR PO SCH (09:00)
[2018-06-30] MEDS ORDERED: LORAZEPAM 1 MG TABLET PO SCH (09:00)
--- NOTE | 2018-06-30 09:35 | NUR ---
REASSESSMENT Pt is in room, asleep. Respirations even and unlabored. Safety measures in place. Will continue to monitor.
--- NOTE | 2018-06-30 12:00 | NUR ---
[facility] assessment 13 Pt is isolative in room, refuses to attend groups. Pt is withdrawn and has a flat affect with a depressive mood. Pt continues to have anxiety, agitation, restlessness, lethargy, fatigue, flushing, dysphoria, anhedonia, sweating, clammy skin, tremors noted. Scheduled meds to be given; refuses other prn meds. Encouraged pt to increase fluids as tolerated for hydration. Safety measures in place.
[2018-06-30 12:09] VITALS: BP 125/82
[2018-06-30 14:41] LABS: BILIRUBIN,TOTAL 0.4 mg/dL (0.2-1.0); CREATININE 0.8 mg/dL (0.6-1.3); POTASSIUM 4.2 mmol/L (3.5-5.1); TOTAL PROTEIN, SERUM 6.9 g/dL (6.4-8.2)
--- NOTE | 2018-06-30 15:14 | NUR ---
Client was prompted to attend group therapy sessions and client stated that he would consider it.
--- NOTE | 2018-06-30 16:32 | NUR ---
[facility] 14 Pt has increased anxiety and agitation, and continues to have facial flushing, fatigue, restlessness, irritation, lethargy, a disheveled appearance, a flat affect, has a depressive and anxious mood, dysphoria, anhedonia, sweating, clammy skin, and tremors noted. Pt c/o pain on his sides. Will administer clonidine prn. Encouraged pt to attend groups and increase fluids as tolerated for hydration.
[2018-06-30] MEDS: RIVAROXABAN 10 MG TABLET PO SCH (16:34)
[2018-06-30 16:43] VITALS: BP 129/92
[2018-06-30] MEDS: CLONIDINE HCL 0.1 MG TABLET PO PRN (17:22)
--- NOTE | 2018-06-30 17:22 | NUR ---
PRN Clonidine 0.1 mg po prn given for increased anxiety; pt appears flushed and tremors were seen. Safety measures in place.Will monitor and reassess.
--- NOTE | 2018-06-30 18:22 | NUR ---
REASSESSMENT Pt reports med was effective in decreasing anxiety; pt is sitting in room watching tv. Safety measures in place.
--- NOTE | 2018-06-30 18:34 | NUR ---
END OF SHIFT Pt has been isolative in room and withdrawn with a depressive and anxious mood throughout shift. Encouraged pt to attend groups however pt states he does not feel well enough to attend. Pt verbalized he will try to attend the night meeting. Pt had increased anxiety and was given clonidine 0.1 mg po prn @1722 and was effective. Last CIWA 14 @1600. Pt ate 75% of meals. Fluid intake 3054 ml, voided x5, bm x2. Encouraged pt to maintain personal hygiene. Safety measures in place.
--- NOTE | 2018-06-30 19:30 | NUR ---
START OF SHIFT Pt is a 53 y/o male admitted on 06/26/18 for ETOH withdrawal. Pt will continue a 5 day Valium taper, tolerating well. Last CIWA 14. PRN Tylenol and Clonidine were administered during day shift. Upon assessment Pt presents with anxiety, agitation, irritability, restlessness, flat affect, isolative, depressive mood, flushed and clammy skin, and tremors noted. Pt also complains of having lower back pain 6/10 and difficulty falling and staying asleep. Medications due. Safety measures in place. Call light within reach. Will continue to monitor.
[2018-06-30 20:00] VITALS: BP 125/89
--- NOTE | 2018-06-30 20:00 | NUR ---
CIWA 14 Pt presents with tremors, flushed and clammy skin, anxiety, agitation, mild sensitive to light, and a mild headache. Safety measures in place. Call light within reach. Will continue to monitor.
[2018-06-30] MEDS: QUETIAPINE FUMARATE 100 MG TABLET PO SCH (21:02)
[2018-06-30] MEDS: TRAZODONE 100 MG TABLET PO SCH (21:02)
[2018-06-30] MEDS: IBUPROFEN 400 MG TABLET PO PRN (21:03)
--- NOTE | 2018-06-30 21:03 | NUR ---
PRN MOTRIN ADMINISTRATION Pt complines of 6/10 lower back pain. Motrin 400mg was administered. Safety measures in place. Call light within reach. Will continue to monitor.
[2018-06-30] MEDS: PRAZOSIN HCL 1 MG CAPSULE PO SCH (21:10)
--- NOTE | 2018-06-30 22:03 | NUR ---
PRN MOTRIN REASSESSMENT Pt found in bed with eyes closed. Respirations are even and unlabored. Medication noted effective. Safety measures in place. Call light within reach. Will continue to monitor.
[2018-07-01] VITALS: BP 77/49
--- NOTE | 2018-07-01 | NUR ---
CIWA DEFERRED AND V/S REFUSED Pt laying in bed with eyes closed, respirations even and unlabored. CIWA deferred. V/S refused. Safety measures in place. Call light within reach. Will continue to monitor.
[2018-07-01] MEDS: IBUPROFEN 400 MG TABLET PO PRN (03:32)
--- NOTE | 2018-07-01 03:32 | NUR ---
PRN MOTRIN ADMINISTRATION Pt woke up complaining of lower back pain 03/03 and requested Motrin. Motrin 400 mg was administered and Pt was reminded of the bed contorts to adjusts to a more comfortable position. Safety measures in place. Call light within reach. Will continue to monitor.
[2018-07-01 04:00] VITALS: BP 117/76
--- NOTE | 2018-07-01 04:00 | NUR ---
CIWA 7 Pt presents with tremors, mild agitation and anxiety. Pt is able to fall and stay asleep. Safety measures in place. Call light within reach. Will continue to monitor.
--- NOTE | 2018-07-01 04:32 | NUR ---
PRN MOTRIN REASSESSMENT Pt found in bed in a semi-fowlers position. Eyes closed, respirations even and unlabored. Medication noted effective. Safety measures in place. Call light within reach. Will continue to monitor.
[2018-07-01] MEDS: PANTOPRAZOLE SODIUM 40 MG TABLET.DR PO SCH (07:06)
--- NOTE | 2018-07-01 07:15 | NUR ---
END OF SHIFT Pt is a 53 y/o male admitted on 06/26/18 for ETOH withdrawal. Pt will continue a 5 day Valium taper, tolerating well. Pt presented with anxiety, agitation, irritability, restlessness, flat affect, isolative, depressive mood, flushed and clammy skin, and tremors noted. Pt also complains of having lower back pain /10. PRN Motrin was administered x 2, effective with pain as verbalized by the Pt. Last CIWA 7. Pt slept 8 hours. Intake 1000 ml, void x 2, stool x 1. Safety measures in place. Call light within reach. Pt's needs have been meet.
--- NOTE | 2018-07-01 07:35 | NUR ---
START OF SHIFT Pt is a 53 y/o M admitted on 06/26/18 for medically supervised withdrawal from ETOH. Pt continues on a 5 day Valium taper that started on 06/27/18, today is the fifth day, and tolerating well. Received pt A/Ox4, has a flat affect, appears flushed and disheveled, has unkempt hair, is malodorous, and has a anxious mood. Pt presents anxiety, agitation, restlessness, lethargy, dysphoria, anhedonia, sweating, clammy skin, tremors noted. Encouraged pt to attend groups for coping skills and to maintain sobriety. Encouraged pt to maintain personal hygiene. Educated pt with plan of care and med regimen. Bed is on the lowest position with side rails x2 up and call light within reach. Safety measures in place. Will give endorsement to hourly shift nurse.
[2018-07-01 08:00] VITALS: BP 106/72
--- NOTE | 2018-07-01 08:00 | NUR ---
CRISTIAN assessment Received pt A/Ox4, pt had just woken up, has a flat affect, appears flushed and disheveled, has dirty unkempt hair, dirty fingernails, is malodorous, and has a anxious mood. Pt presents anxiety, agitation, restlessness, lethargy, dysphoria, anhedonia, sweating, clammy skin, and tremors noted. Encouraged pt to maintain personal hygiene. Encouraged pt to attend groups; pt stated he will think about it. Scheduled meds to be given. Clonidine prn to be given. Addendum: 07/01/18 at 2 by CHUY OLIVER RN CRISTIAN
[2018-07-01] MEDS: FOLIC ACID 1 MG TABLET PO SCH (08:39)
[2018-07-01] MEDS: THIAMINE HCL 100 MG TABLET PO SCH (08:40)
[2018-07-01] MEDS: MULTIVITAMINS,THERAPEUTIC TABLET PO SCH (08:40)
[2018-07-01] MEDS: ATORVASTATIN 20 MG TABLET PO SCH (08:40)
[2018-07-01] MEDS: DIAZEPAM 5 MG TABLET PO SCH ×2 (08:40→20:34)
[2018-07-01] MEDS: DULOXETINE 60 MG CAPSULE.DR PO SCH (08:40)
[2018-07-01] MEDS: NIFEdipine XL 30 MG TABSR PO SCH (08:40)
[2018-07-01] MEDS: ENSURE WITH FIBER 237 ML LIQUID (CHOCOLATE) PO SCH ×3 (08:45→17:45)
[2018-07-01] MEDS: CLONIDINE HCL 0.1 MG TABLET PO PRN ×2 (08:45→17:43)
--- NOTE | 2018-07-01 08:45 | NUR ---
PRN Ibuprofen 600 mg po prn given for back ache 6/10 with facial grimacing and restlessness. Will monitor and reassess.
[2018-07-01] MEDS ORDERED: LORAZEPAM 1 MG TABLET PO SCH (09:00)
--- NOTE | 2018-07-01 09:45 | NUR ---
REASSESSMENT Pt reports med was effective and states 1/10 pain at this time. Will cont to monitor
[2018-07-01 12:00] VITALS: BP 112/82
--- NOTE | 2018-07-01 12:00 | NUR ---
[facility] assessment 13 Pt continues to has a flat affect, is withdrawn, isolative, appears flushed and disheveled, is malodorous, and has a depressive and anxious mood, increased anxiety, agitation, restlessness, lethargy, dysphoria, anhedonia, sweating, clammy skin, and tremors noted. Encouraged pt to use non-pharmalogical interventions for relaxation. Refuses prns at this time.
--- NOTE | 2018-07-01 16:15 | NUR ---
[facility] assessment 15 Pt continues to be withdrawn and isolative, less eye contact, appears flushed and is disheveled, is malodorous, and has a depressive and anxious mood, increased anxiety, agitation, restlessness, lethargy, dysphoria, anhedonia, sweating, clammy skin, and tremors noted. Clonidine prn to be administered, refuses other prns. Encouraged pt to use non-pharmalogical interventions for relaxation such as deep breathing exercises; pt verbalized understanding.
[2018-07-01 16:30] VITALS: BP 109/67
--- NOTE | 2018-07-01 17:43 | NUR ---
PRN Clonidine 0.1 po prn given for increased anxiety and agitation, pt appears flushed, restless, fidgety. Will monitor and reassess.
[2018-07-01] MEDS: RIVAROXABAN 10 MG TABLET PO SCH (17:45)
--- NOTE | 2018-07-01 18:43 | NUR ---
REASSESSMENT Pt verbalized med as effective in decreasing anxiety and agitation, however anxiety still lingers. Encouraged pt to leave the room to increase circulation and have a change in scenery and environment. Encouraged pt again to attend group. Safety measures in place.
--- NOTE | 2018-07-01 19:58 | NUR ---
END OF SHIFT Pt has been isolative and withdrawn throughout shift, with having increased anxiety, agitation, restlessness. PRNs clonidine x2 was given. Last CIWA 15. Pt verbalized his current situation about his stressful job gives him increased anxiety adding to his withdrawal symptoms. Encouraged pt to attend groups and pt states he is planning on going next time. Safety measures in place. Endorsement given to mini shifter nurse.
--- NOTE | 2018-07-01 19:59 | NUR ---
Start of shift note Received report from ay shift nurse. Pt is a 53 yo male, A+Ox4, presenting to [facility] for ETOH withdrawal. Pt noted to be anxious, agitated, sweaty, and having fine tremors. Pt has HX of anxiety, depression, brain aneurism, craniotomy, bipolar, and right shoulder FX/repair which will be monitored during shift. Pt is on 5 day Valium taper, tolerated well. Respirations even and unlabored. Will continue to monitor.
[2018-07-01 20:10] VITALS: BP 124/95
--- NOTE | 2018-07-01 20:10 | NUR ---
CIWA Assessment CIWA: 12. Pt noted with anxiety, agitation, mild headache, and sweat on forehead. Respirations even and unlabored. Will continue to monitor.
[2018-07-01] MEDS: TRAZODONE 100 MG TABLET PO SCH (20:33)
[2018-07-01] MEDS: PRAZOSIN HCL 1 MG CAPSULE PO SCH (20:33)
[2018-07-01] MEDS: QUETIAPINE FUMARATE 100 MG TABLET PO SCH (20:34)
--- NOTE | 2018-07-02 00:25 | NUR ---
V/S refused, CIWA assessment deferred for sleep. Respirations even and unlabored. Will continue to monitor.
--- NOTE | 2018-07-02 04:46 | NUR ---
V/S refused, CIWA assessment deferred for sleep. Respirations even and unlabored. Will continue to monitor.
--- NOTE | 2018-07-02 07:00 | NUR ---
End of shift note Pt was continuously noted with anxiety, agitation, and restlessness. Pt remained in room for entire shift. Pt remained cooperative and compliant with all aspects of treatment. Pt was not given any PRN medications during shift. Pt is on 5 day Valium taper, tolerated well. Pt slept for a total of 7 HRS. Last CIWA: 12 @2000. Respirations even and unlabored. Will endorse to day shift nurse.
--- NOTE | 2018-07-02 07:05 | NUR ---
Start of Shift Notes: Received patient in his room. Awake, alert and verbally responsive. Oriented x 4. He appears disheveled, unshaved, with dirty fingernails and appears to have poor regards to hygiene. Room is odorous and noted with garbage around the room. Encouraged patient to maintain his personal hygiene and space. Room was cleaned and garbage disposed of. Affect is flat. Denies S/I or H/I noted. No AV hallucinations noted. Encouraged patient to verbalize his feelings and concerns. Patient is a 53 year old male admitted for ETOH withdrawal who completed his 5-day Valium taper as ordered. No adverse reactions noted. Educated patient on his current plan of care for the day and his medication regimen. Encouraged oral fluid intake and encouraged group participation to learn new skills to prevent relapse. Will continue to monitor closely.
[2018-07-02] MEDS: PANTOPRAZOLE SODIUM 40 MG TABLET.DR PO SCH (07:18)
[2018-07-02 08:00] VITALS: BP 114/78
[2018-07-02] MEDS: ENSURE WITH FIBER 237 ML LIQUID (CHOCOLATE) PO SCH ×3 (08:24→16:08)
[2018-07-02] MEDS: DULOXETINE 60 MG CAPSULE.DR PO SCH (08:25)
[2018-07-02] MEDS: ATORVASTATIN 20 MG TABLET PO SCH (08:25)
[2018-07-02] MEDS: THIAMINE HCL 100 MG TABLET PO SCH (08:25)
[2018-07-02] MEDS: FOLIC ACID 1 MG TABLET PO SCH (08:25)
[2018-07-02] MEDS: MULTIVITAMINS,THERAPEUTIC TABLET PO SCH (08:25)
--- NOTE | 2018-07-02 08:30 | NUR ---
COWS Assessment: COWS 12, patient presented with disheveled and unshaven appearance, gross tremors, and sweating. He was noted with increased anxiety, agitation and feelings of nervousness due to the discharge process. Encouraged patient to verbalize his feelings and concerns. Oral fluids encouraged. Support provided. Patient was also encouraged to shower. Will continue to monitor. Addendum: 07/02/18 at 1311 by ZAIDA HELM LVN Error in charting. This should state CIWA Assessment not COWS Assessment. Patient's CIWA is 12
[2018-07-02] MEDS: NIFEdipine XL 30 MG TABSR PO SCH (09:08)
[2018-07-02 12:00] VITALS: BP 136/85
--- NOTE | 2018-07-02 12:30 | NUR ---
CIWA Assessment: CIWA 11, patient continues to present with diaphoresis, facial flushing, anxiety, agitation, irritability and poor regards to hygiene. Patient verbalizes he will take a shower today. He was encouraged to attend group due to self isolation and withdrawn. Support provided.
[2018-07-02 16:00] VITALS: BP 125/85
[2018-07-02] MEDS: RIVAROXABAN 10 MG TABLET PO SCH (16:08)
--- NOTE | 2018-07-02 16:09 | NUR ---
CIWA Assessment: CIWA 10, patient continues to present with gross tremors, intermittent perspiration, diaphoresis, anxiety/agitation. Patient continues to be withdrawn, self isolates and worried facial expression. He was encouraged to attend group but patient refused. Encouraged patient to verbalize his feelings and concerns. Support provided. Will continue to monitor.
--- NOTE | 2018-07-02 19:08 | NUR ---
End of Shift Notes: Patient completed his 5-day Valium taper succsefully. No adverse reactions noted. VS monitored closely. No significant abnormlties noted. Withdrawal symptoms were closely monitored. Initial CIWA 12, patient presented with gross tremors, intermittent diaphoresis, facial flushing, anxiety, agitation and headache. Last CIWA 10. Patient was encouraged to attend group and activities due to episodes of self isolation. Encouraged patient to shower for self care. Appetite good. Patient will be discharging tomorrow. Safety precautions in place. All needs met and attended. Will continue to monitor.
--- NOTE | 2018-07-02 19:10 | NUR ---
Start of shift note Received report from day shift nurse. Pt is a 53 yo male, A+Ox4, presenting to [facility] for medically supervised withdrawal from ETOH. Pt noted with restlessness, anxiety, and agitation. Pt has HX of anxiety, HTN, brain aneurism, craniotomy, borderline bipolar, DVT, seizure, partial colectomy, and right shoulder FX/repair which will be monitored during shift. Pt is on 5 day Valium taper, tolerated well. Respirations even and unlabored. Will continue to monitor.
[2018-07-02 20:14] VITALS: BP 128/99
--- NOTE | 2018-07-02 20:15 | NUR ---
CIWA Assessment CIWA: 6. Pt noted with fine tremors, sweat on brow, anxiety, and agitation. Respirations even and unlabored. Will continue to monitor.
[2018-07-02] MEDS ORDERED: TRAZ-214 PO (20:49)
[2018-07-02] MEDS ORDERED: DULO60CA45 PO (20:49)
[2018-07-02] MEDS ORDERED: QUET100T PO (20:49)
[2018-07-02] MEDS: PRAZOSIN HCL 1 MG CAPSULE PO SCH (20:53)
[2018-07-02] MEDS: TRAZODONE 100 MG TABLET PO SCH (20:53)
[2018-07-02] MEDS: QUETIAPINE FUMARATE 100 MG TABLET PO SCH (20:53)
--- NOTE | 2018-07-03 00:55 | NUR ---
V/S refused, CIWA Assessment deferred for sleep. Respirations even and unlabored. Will continue to monitor.
--- NOTE | 2018-07-03 04:05 | NUR ---
V/S refused, CIWA Assessment deferred for sleep. Respirations even and unlabored. Will continue to monitor.
[2018-07-03] MEDS: PANTOPRAZOLE SODIUM 40 MG TABLET.DR PO SCH (06:54)
--- NOTE | 2018-07-03 07:00 | NUR ---
End of shift note Pt was continuously noted with agitation, anxiety, and restlessness. Pt remained in room for entire shift. Pt remained cooperative and compliant with all aspects of treatment. Pt was not given any PRN medications during shift. Pt has completed 5 day Valium taper, tolerated well, and is due for discharge today. Pt slept for a total of 7 HRS. Last CIWA: 6 @1999. Respirations even and unlabored. Will endorse to day shift nurse.
--- NOTE | 2018-07-03 07:30 | NUR ---
Start of Shift Payroll And Benefits Specialist received report on 53 year old male admitted to [facility] on 06/26/18 with scheduled discharge for this morning. Pt was admitted for medical management of ETOH withdrawals and has completed a Valium taper with last CIWA 6. Pt reports NKA, full code and regular diet. Pt reports a PMH to include HTN, Brain Aneurysm with craniotomy and DVt's, with history of seizure in 2011. PPH of anxiety and per pt was diagnosed Borderline Personality DO. Pt with no PRN medications administered on NOC, per report. Payroll And Benefits Specialist encounters pt in pt's room, pt is resting with eyes closed and rise and fall of chest noted. Even and unlabored respirations. Bed in low position with wheels locked and side rails up x2. Will continue to monitor, support and encourage according to plan of care.
--- NOTE | 2018-07-03 08:00 | NUR ---
CIWA 4 Pt is restless and anxious about discharge and return to [facility], but is hopeful for the future. Will continue to monitor, support and encourage according to plan of care.
[2018-07-03 08:07] VITALS: BP 111/82
[2018-07-03] MEDS: ENSURE WITH FIBER 237 ML LIQUID (CHOCOLATE) PO SCH (08:46)
[2018-07-03 08:47] VITALS: BP 111/82
[2018-07-03] MEDS: FOLIC ACID 1 MG TABLET PO SCH (08:47)
[2018-07-03] MEDS: DULOXETINE 60 MG CAPSULE.DR PO SCH (08:47)
[2018-07-03] MEDS: ATORVASTATIN 20 MG TABLET PO SCH (08:47)
[2018-07-03] MEDS: MULTIVITAMINS,THERAPEUTIC TABLET PO SCH (08:47)
[2018-07-03] MEDS: THIAMINE HCL 100 MG TABLET PO SCH (08:47)
[2018-07-03] MEDS: NIFEdipine XL 30 MG TABSR PO SCH (08:47)
--- NOTE | 2018-07-03 09:35 | NUR ---
Discharge Pt is calm and cooperative and makes needs known. A/O x4 with a linear thought process and clear speech pattern. Pt with a flat affect and depressed mood. Pt is hopeful for the future, but anxious about discharge. Pt denies any SI/HI or A/VH. Pt is discharging back to [facility]. Pt was educated on discharge diagnosis, discharge paperwork and medications. Pt educated on name, route, timing, dose and indiction of medication, pt provided with prescriptions. Pt educated on importance of continued sobriety and continued follow-up care. Pt was provided with copies of all discharge paperwork including discharge educational material. Pt had all belongings returned, with no home medication to return. Pt was escorted to main lobby where transportation was provided for pt for transportation to [facility].
== END 2018-07-03 09:25 | disposition home or self-care (01) | DRG 895 ==
LOC: SRC 19:07
PROVIDERS: ADMIT Family Medicine Addiction Medicine; ATTEND Family Medicine Addiction Medicine
PROC: HZ2ZZZZ Detoxification Services for Substance Abuse Treatment (ICD-10-PCS; principal; 2018-06-26)
PROC: HZ5 Substance Abuse Treatment, Individual Psychotherapy (ICD-10-PCS; 2018-06-28)
PROC: HZ31ZZZ Individual Counseling for Substance Abuse Treatment, Behavioral (ICD-10-PCS; 2018-06-29)
DX: F10.230 Alcohol dependence with withdrawal, uncomplicated (principal); F33.2 Major depressive disorder, recurrent severe without psychotic features; Y90.9 Presence of alcohol in blood, level not specified; Z79.01 Long term (current) use of anticoagulants; Z86.718 Personal history of other venous thrombosis and embolism; Y90.8 Blood alcohol level of 240 mg/100 ml or more; E87.6 Hypokalemia; Z86.73 Personal history of transient ischemic attack (TIA), and cerebral infarction without residual deficits; Z95.828 Presence of other vascular implants and grafts; R60.0 Localized edema; K21.9 Gastro-esophageal reflux disease without esophagitis; I10 Essential (primary) hypertension; Z81.1 Family history of alcohol abuse and dependence; F41.9 Anxiety disorder, unspecified
CPT/HCPCS: 36415; 70030-TC; 80307; 80346; 83690; 83735; 84443; 85025; 85610; 85730; 86592; 86705; 86803; 87340; 87806; G0480; J2405; J3411; Q0162; Q0163

== ENCOUNTER 2023-01-16 19:29 | Emergency (ER) | payer BC, OTHER ==
[~2023-01-16 19:29] MED LIST changes: -DULO30CA2 PO; -PANT40TA2 PO; -PRAZ1CAP2 PO; -RIVA10TA PO; -RIVA20TA PO; -TRAZ-214 PO; +TRAZ-257 PO
[2023-01-16] MEDS ORDERED: ATROPINE SULFATE 1 MG/10 ML DISP.SYRIN IV ONE (20:45)
--- NOTE | 2023-01-16 22:03 | NUR ---
Patient was just called at this time due to short staffing in the ER (only 2 nurse schedule). One critical patient in room 1A and three other patient in the other rooms. But when called, patient was not present in the waiting room or outside of ER.
--- NOTE | 2023-01-16 23:00 | NUR ---
Patient was called to be triaged but was not present in the waiting room or outside of ER. PATIENT WAS NOT TRIAGED OR SEEN BY ERMD.
== END 2023-01-16 23:00 | disposition left against medical advice (07) ==
LOC: ER 19:29
DX: Z53.21 Procedure and treatment not carried out due to patient leaving prior to being seen by health care provider (principal)

== ENCOUNTER 2023-11-08 14:17 | Inpatient (IN) | payer OTHER ==
[~2023-11-08] VITALS: Ht 177.8 cm; Wt 108.9 kg
[2023-11-08 17:39] LABS: CALCIUM 8.8 mg/dL (8.5-10.1); POTASSIUM 4.3 mmol/L (3.5-5.1)
[2023-11-08 17:45] LABS: BILIRUBIN,DIRECT 0.2 mg/dL (0.0-0.2); BILIRUBIN,TOTAL 0.9 mg/dL (0.2-1.0); MAGNESIUM 2.1 mg/dL (1.8-2.4); TOTAL PROTEIN, SERUM 8.1 g/dL (6.4-8.2)
[2023-11-08 17:55] LABS: BASOPHILS % (AUTO) 0.7 % (0.0-2.0); DIFFERENTIAL COMMENT 0; EOSINOPHILS % (AUTO) 0.2 % (0.0-7.0); HEMATOCRIT 48.3 % (36.7-47.1); LYMPHOCYTES % (AUTO) 18.3 % (20.5-51.5); MEAN CORPUSCULAR HGB CONC 33 g/dL (32.5-36.3); MEAN CORPUSCULAR VOLUME 99.7 fL (73.0-96.2); MONOCYTES # (AUTO) 0.3 K/uL (0.1-1.30); MONOCYTES % (AUTO) 5.7 % (0.0-11.0); NEUTROPHILS # (AUTO) 4.2 K/uL (1.8-8.9); NEUTROPHILS % (AUTO) 75.1 % (38.5-71.5); PLATELET COUNT (AUTO) 283 K/uL (152-348); RED BLOOD CELL COUNT(AUTO) 4.84 MIL/uL (4.06-5.63); RED CELL DISTRIBUTION WIDTH 15.1 % (12.1-16.2); WHITE BLOOD COUNT (AUTO) 5.6 K/uL (3.6-10.2)
[2023-11-08] MEDS ORDERED: PROC-11 PO (18:19)
[2023-11-08] MEDS ORDERED: IV NORMAL SALINE 1000 ML BAG IV ONE ×2 (19:00→22:00)
[2023-11-08 19:09] LABS: ABG HCO3 11.3 mmol/L (22.0-26.0); ABG PCO2 18.3 mmHg (35.0-48.0); ABG PO2 99.8 mmHg (75.0-100.0); ABG SITE RIGHT RADIAL; ABG TOTAL HEMOGLOBIN 17.1 G/dL (14.0-18.0); AaDO2 97.8 mmHg; COHb 0.5 % (0.0-3.9); MetHb 0.4 % (0.0-1.5); O2Hb 96.7 % (94.0-97.0)
[2023-11-08 19:15] LABS: ACETAMINOPHEN < 2.0 ug/mL (10-30)
[2023-11-08] MEDS ORDERED: ONDANSETRON ODT 4 MG TAB.RAPDIS ONE (19:41)
[2023-11-08] MEDS ORDERED: ONDANSETRON ODT 4 MG TAB.RAPDIS SL ONE (19:45)
[2023-11-08 20:23] LABS: *BILIRUBIN,URIN NEGATIVE (NEGATIVE); *BLOOD, URINE 3+ (NEGATIVE); *CLARITY,URINE HAZY (CLEAR); *COLOR,URINE YELLOW (YELLOW); *KETONES,URINE 4+ (NEGATIVE); *PROTEIN,URINE 2+ (NEGATIVE); *UROBILINOGEN,URINE 0.2 E.U./dl (NORMAL); LEUKOCYTE ESTERASE ,URINE NEGATIVE (NEGATIVE); NITRITE, URINE NEGATIVE (NEGATIVE); UGLUCOSE NEGATIVE (NEGATIVE)
[2023-11-08 20:30] LABS: BACTERIA,URINE NONE SEEN /HPF (NONE SEEN); RBC,URINE 20-50 /HPF (0-3); SQUAMOUS EPITHELIAL CELL,UR FEW /HPF (NONE SEEN); WBC,URINE 0-3 /HPF (0-3)
[2023-11-08] MEDS ORDERED: diphenhydrAMINE 50 MG/1 ML VIAL ONE (21:13)
[2023-11-08] MEDS ORDERED: QUETIAPINE FUMARATE 100 MG TABLET ONE (21:13)
[2023-11-08] MEDS ORDERED: METOCLOPRAMIDE HCL 10 MG/2 ML VIAL ONE (21:13)
[2023-11-08] MEDS ORDERED: QUETIAPINE FUMARATE 25 MG TABLET PO ONE (21:15)
[2023-11-08] MEDS ORDERED: METOCLOPRAMIDE HCL 10 MG/2 ML VIAL IV ONE (21:15)
[2023-11-08] MEDS ORDERED: diphenhydrAMINE 50 MG/1 ML VIAL IV ONE (21:15)
[2023-11-08 21:58] LABS: LACTIC ACID 6.4 mmol/L (0.4-2.0)
[2023-11-08 22:06] LABS: HIV-1 p24 ANTIGEN NON REACTIVE (NONREACTIVE); HIV-1/2 ANTIBODY NON REACTIVE (NONREACTIVE)
[2023-11-08] MEDS ORDERED: LORAZEPAM 2 MG/1 ML VIAL ONE (22:13)
[2023-11-08] MEDS ORDERED: LORAZEPAM 2 MG/1 ML VIAL IV ONE (22:15)
[2023-11-08] MEDS ORDERED: ACETAMINOPHEN 325 MG TABLET PO PRN (22:30)
[2023-11-08] MEDS ORDERED: ONDANSETRON 4 MG/2 ML VIAL IV PRN (22:30)
[2023-11-08] MEDS ORDERED: MAGNESIUM HYDROXIDE 30 ML LIQUID UDC PO PRN (22:30)
[2023-11-08] MEDS ORDERED: REMEDY ESSENTIAL ZINC PASTE 113 GM TP PRN (22:30)
[2023-11-08] MEDS: IV NS 1000 ML 1,000 ML IV SCH (22:30)
[2023-11-09 00:40] VITALS: BP 187/115; TEMP 98.8; O2SAT 97
[2023-11-09] MEDS: CLONIDINE HCL 0.1 MG TABLET PO PRN ×2 (00:42→16:29)
[2023-11-09] MEDS: LORAZEPAM 2 MG/1 ML VIAL IV PRN ×4 (00:42→21:34)
[2023-11-09 00:44] VITALS: BP 187/115; TEMP 98.9; O2SAT 97
[2023-11-09 05:17] VITALS: BP 178/100; TEMP 97.8; O2SAT 96
[2023-11-09] MEDS: CHLORDIAZEPOXIDE HCL 25 MG CAPSULE PO SCH ×3 (05:21→21:17)
[2023-11-09 06:50] LABS: BASOPHILS % (AUTO) 0.4 % (0.0-2.0); EOSINOPHILS % (AUTO) 0.2 % (0.0-7.0); HEMATOCRIT 40.1 % (36.7-47.1); HEMOGLOBIN 13.5 g/dL (12.5-16.3); LYMPHOCYTES # (AUTO) 1.6 K/uL (0.8-4.8); LYMPHOCYTES % (AUTO) 18.5 % (20.5-51.5); MEAN CORPUSCULAR HEMOGLOBIN 33.3 uug (23.8-33.4); MEAN CORPUSCULAR HGB CONC 34 g/dL (32.5-36.3); MEAN CORPUSCULAR VOLUME 98.6 fL (73.0-96.2); MONOCYTES # (AUTO) 0.7 K/uL (0.1-1.30); NEUTROPHILS # (AUTO) 6.3 K/uL (1.8-8.9); NEUTROPHILS % (AUTO) 72.9 % (38.5-71.5); PLATELET COUNT (AUTO) 191 K/uL (152-348); RED BLOOD CELL COUNT(AUTO) 4.07 MIL/uL (4.06-5.63); RED CELL DISTRIBUTION WIDTH 14.6 % (12.1-16.2); WHITE BLOOD COUNT (AUTO) 8.6 K/uL (3.6-10.2)
[2023-11-09 07:07] LABS: CALCIUM 7.1 mg/dL (8.5-10.1); MAGNESIUM 1.7 mg/dL (1.8-2.4); PHOSPHOROUS 2.5 mg/dL (2.5-4.9)
[2023-11-09 07:08] LABS: POTASSIUM 3.8 mmol/L (3.5-5.1)
[2023-11-09] MEDS: PANTOPRAZOLE SODIUM 40 MG TABLET.DR PO SCH (07:10)
[2023-11-09 07:35] LABS: DIFFERENTIAL COMMENT 1
[2023-11-09] MEDS: IV NS 1000 ML 1,000 ML IV SCH ×3 (07:38→23:41)
[2023-11-09] MEDS: FOLIC ACID 1 MG TABLET PO SCH (08:50)
[2023-11-09] MEDS: THIAMINE HCL 100 MG TABLET PO SCH (08:51)
[2023-11-09] MEDS: MAGNESIUM OXIDE 400 MG TABLET PO SCH ×2 (11:20→20:31)
[2023-11-09 11:56] VITALS: BP 174/95; TEMP 97.8; O2SAT 94
[2023-11-09 15:39] VITALS: BP 182/105; TEMP 97
[2023-11-09] MEDS: PRAZOSIN HCL 1 MG CAPSULE PO SCH (17:10)
[2023-11-09] MEDS ORDERED: Medication Not On Formulary EA (Prazosin Hcl 1 CAP) PO SCH (18:00)
[2023-11-09 20:00] VITALS: BP 150/95; TEMP 97.6; O2SAT 97
[2023-11-09] MEDS: QUETIAPINE FUMARATE 100 MG TABLET PO SCH (20:30)
[2023-11-09] MEDS: TRAZODONE 100 MG TABLET PO SCH (20:30)
[2023-11-10] MEDS: LORAZEPAM 2 MG/1 ML VIAL IV PRN ×4 (02:51→21:31)
[2023-11-10 05:00] VITALS: BP 150/89; TEMP 97.7; O2SAT 98
[2023-11-10] MEDS: CHLORDIAZEPOXIDE HCL 25 MG CAPSULE PO SCH ×3 (06:03→21:31)
[2023-11-10] MEDS: PANTOPRAZOLE SODIUM 40 MG TABLET.DR PO SCH (06:50)
[2023-11-10] MEDS: IV NS 1000 ML 1,000 ML IV SCH (06:50)
[2023-11-10] MEDS: DULOXETINE 60 MG CAPSULE.DR PO SCH (08:33)
[2023-11-10] MEDS: FOLIC ACID 1 MG TABLET PO SCH (08:33)
[2023-11-10] MEDS: NIFEdipine XL 30 MG TABSR PO SCH (08:33)
[2023-11-10] MEDS: THIAMINE HCL 100 MG TABLET PO SCH (08:34)
[2023-11-10] MEDS: CLONIDINE HCL 0.1 MG TABLET PO PRN (08:34)
[2023-11-10 09:37] LABS: EOSINOPHILS # (AUTO) 0.3 K/uL (0.0-0.7); EOSINOPHILS % (AUTO) 6.1 % (0.0-7.0); HEMATOCRIT 39.3 % (36.7-47.1); HEMOGLOBIN 13.2 g/dL (12.5-16.3); LYMPHOCYTES % (AUTO) 24.4 % (20.5-51.5); MEAN CORPUSCULAR HEMOGLOBIN 32.9 uug (23.8-33.4); MEAN CORPUSCULAR HGB CONC 34 g/dL (32.5-36.3); MEAN CORPUSCULAR VOLUME 98.2 fL (73.0-96.2); MONOCYTES # (AUTO) 0.3 K/uL (0.1-1.30); MONOCYTES % (AUTO) 6.4 % (0.0-11.0); NEUTROPHILS # (AUTO) 2.7 K/uL (1.8-8.9); NEUTROPHILS % (AUTO) 63.1 % (38.5-71.5); PLATELET COUNT (AUTO) 155 K/uL (152-348); RED BLOOD CELL COUNT(AUTO) 4.01 MIL/uL (4.06-5.63); RED CELL DISTRIBUTION WIDTH 14.4 % (12.1-16.2); WHITE BLOOD COUNT (AUTO) 4.3 K/uL (3.6-10.2)
[2023-11-10 09:44] LABS: DIFFERENTIAL COMMENT 1
[2023-11-10 09:50] LABS: ALBUMIN 2.9 g/dL (3.4-5.0); BILIRUBIN,DIRECT 0.4 mg/dL (0.0-0.2); BILIRUBIN,TOTAL 1.3 mg/dL (0.2-1.0); PHOSPHOROUS 1.5 mg/dL (2.5-4.9); TOTAL PROTEIN, SERUM 6.1 g/dL (6.4-8.2)
[2023-11-10] MEDS ORDERED: NEUTRA PHOS PACKET PO ONE (15:50)
[2023-11-10] MEDS: PRAZOSIN HCL 1 MG CAPSULE PO SCH (17:40)
[2023-11-10] MEDS: IV NS 1000 ML 1,000 ML IV PRN (18:56)
[2023-11-10 20:00] VITALS: BP 136/89; TEMP 98.7; O2SAT 94
[2023-11-10] MEDS: QUETIAPINE FUMARATE 100 MG TABLET PO SCH (21:17)
[2023-11-10] MEDS: TRAZODONE 100 MG TABLET PO SCH (21:17)
[2023-11-10] MEDS: MAGNESIUM OXIDE 400 MG TABLET PO SCH (21:18)
[2023-11-11] MEDS: LORAZEPAM 2 MG/1 ML VIAL IV PRN ×4 (02:19→18:10)
[2023-11-11 03:08] LABS: HEPATITIS B SURFACE AG Negative (Negative); HEPATITIS C VIRUS ANTIBODY Non Reactive (Non Reactive)
[2023-11-11 04:00] VITALS: BP 143/91; TEMP 98.4; O2SAT 96
[2023-11-11] MEDS: PANTOPRAZOLE SODIUM 40 MG TABLET.DR PO SCH (06:32)
[2023-11-11] MEDS: CHLORDIAZEPOXIDE HCL 25 MG CAPSULE PO SCH ×3 (06:32→21:24)
[2023-11-11 07:56] LABS: CALCIUM 6.1 mg/dL (8.5-10.1); CARBON DIOXIDE 20 mmol/L (21-32); CREATININE 0.6 mg/dL (0.6-1.3); GLUCOSE 72 mg/dL (74-106); MAGNESIUM 1.4 mg/dL (1.8-2.4); PHOSPHOROUS 1.5 mg/dL (2.5-4.9); UREA NITROGEN, BLOOD 6 mg/dL (7-18)
[2023-11-11 08:09] LABS: BASOPHILS % (AUTO) 0.6 % (0.0-2.0); EOSINOPHILS # (AUTO) 0.3 K/uL (0.0-0.7); EOSINOPHILS % (AUTO) 6.9 % (0.0-7.0); HEMATOCRIT 40.8 % (36.7-47.1); LYMPHOCYTES # (AUTO) 0.8 K/uL (0.8-4.8); MEAN CORPUSCULAR HEMOGLOBIN 33.2 uug (23.8-33.4); MEAN CORPUSCULAR HGB CONC 34 g/dL (32.5-36.3); MEAN CORPUSCULAR VOLUME 96.4 fL (73.0-96.2); MONOCYTES # (AUTO) 0.3 K/uL (0.1-1.30); NEUTROPHILS # (AUTO) 3.4 K/uL (1.8-8.9); NEUTROPHILS % (AUTO) 69.5 % (38.5-71.5); PLATELET COUNT (AUTO) 147 K/uL (152-348); RED BLOOD CELL COUNT(AUTO) 4.23 MIL/uL (4.06-5.63); WHITE BLOOD COUNT (AUTO) 4.9 K/uL (3.6-10.2)
[2023-11-11 08:18] LABS: CHLORIDE 111 mmol/L (98-107); SODIUM SERUM 143 mmol/L (136-145)
[2023-11-11 08:29] LABS: POTASSIUM 2.3 mmol/L (3.5-5.1)
[2023-11-11] MEDS: POTASSIUM CHLORIDE 50 ML IV SCH ×4 (09:09→13:42)
[2023-11-11] MEDS: NIFEdipine XL 30 MG TABSR PO SCH (09:10)
[2023-11-11] MEDS: FOLIC ACID 1 MG TABLET PO SCH (09:10)
[2023-11-11] MEDS: THIAMINE HCL 100 MG TABLET PO SCH (09:10)
[2023-11-11] MEDS: DULOXETINE 60 MG CAPSULE.DR PO SCH (09:10)
[2023-11-11] MEDS: IV NS 1000 ML 1,000 ML IV PRN (09:12)
[2023-11-11] MEDS ORDERED: POTASSIUM PHOSPHATE MM 15 MMOL in IV NORMAL SALINE 250 ML IV ONE (10:00)
[2023-11-11 11:08] VITALS: BP 141/82; TEMP 98.3; O2SAT 97
[2023-11-11] MEDS: MAGNESIUM SULFATE/D5W 100 ML IV SCH ×4 (14:31→17:19)
[2023-11-11 15:25] VITALS: BP 120/77; TEMP 98.2; O2SAT 95
[2023-11-11] MEDS: PRAZOSIN HCL 1 MG CAPSULE PO SCH (17:10)
[2023-11-11 19:45] VITALS: BP 136/84; TEMP 98.2; O2SAT 91
[2023-11-11] MEDS: MAGNESIUM OXIDE 400 MG TABLET PO SCH (21:23)
[2023-11-11] MEDS: TRAZODONE 100 MG TABLET PO SCH (21:24)
[2023-11-11] MEDS: QUETIAPINE FUMARATE 100 MG TABLET PO SCH (21:24)
[2023-11-12] MEDS: LORAZEPAM 2 MG/1 ML VIAL IV PRN ×3 (00:40→08:39)
[2023-11-12] MEDS: CHLORDIAZEPOXIDE HCL 25 MG CAPSULE PO SCH ×3 (06:00→23:30)
[2023-11-12] MEDS: PANTOPRAZOLE SODIUM 40 MG TABLET.DR PO SCH (06:32)
[2023-11-12 06:37] VITALS: BP 157/98; TEMP 98.1; O2SAT 94
[2023-11-12 08:02] LABS: CREATININE 0.7 mg/dL (0.6-1.3); PHOSPHOROUS 2.3 mg/dL (2.5-4.9)
[2023-11-12 08:05] LABS: POTASSIUM 2.8 mmol/L (3.5-5.1)
[2023-11-12 08:08] LABS: CALCIUM 6.8 mg/dL (8.5-10.1)
[2023-11-12] MEDS: NIFEdipine XL 30 MG TABSR PO SCH (08:39)
[2023-11-12] MEDS: FOLIC ACID 1 MG TABLET PO SCH (08:39)
[2023-11-12] MEDS: DULOXETINE 60 MG CAPSULE.DR PO SCH (08:48)
[2023-11-12] MEDS: THIAMINE HCL 100 MG TABLET PO SCH (08:49)
[2023-11-12] MEDS: POTASSIUM CHLORIDE 10 MEQ TAB.PRT.SR PO SCH ×2 (10:14→13:23)
[2023-11-12 12:24] VITALS: BP 143/98; TEMP 98; O2SAT 93
[2023-11-12] MEDS ORDERED: LACTULOSE 20 G/30 ML LIQUID UDC PO ONE (12:30)
[2023-11-12 16:00] VITALS: BP 140/104; TEMP 98.1
[2023-11-12] MEDS ORDERED: NEUTRA PHOS PACKET PO ONE (16:00)
[2023-11-12] MEDS: IV 1/2 NS + KCL 20 MEQ BAG 1,000 ML IV PRN (16:19)
[2023-11-12] MEDS: PRAZOSIN HCL 1 MG CAPSULE PO SCH (17:07)
[2023-11-12 20:00] VITALS: BP 111/72; TEMP 98.5; O2SAT 97
[2023-11-12] MEDS: QUETIAPINE FUMARATE 100 MG TABLET PO SCH (20:32)
[2023-11-12] MEDS: MAGNESIUM OXIDE 400 MG TABLET PO SCH (20:32)
[2023-11-12] MEDS: TRAZODONE 100 MG TABLET PO SCH (20:32)
[2023-11-13] MEDS: IV 1/2 NS + KCL 20 MEQ BAG 1,000 ML IV PRN (04:44)
[2023-11-13] MEDS: CHLORDIAZEPOXIDE HCL 25 MG CAPSULE PO SCH ×3 (06:28→21:48)
[2023-11-13 08:00] VITALS: BP 145/90; TEMP 97.7; O2SAT 96
[2023-11-13] MEDS: FOLIC ACID 1 MG TABLET PO SCH (08:40)
[2023-11-13] MEDS: PANTOPRAZOLE SODIUM 40 MG TABLET.DR PO SCH (08:40)
[2023-11-13] MEDS: THIAMINE HCL 100 MG TABLET PO SCH (08:40)
[2023-11-13] MEDS: NIFEdipine XL 30 MG TABSR PO SCH (08:40)
[2023-11-13] MEDS: DULOXETINE 60 MG CAPSULE.DR PO SCH (08:40)
[2023-11-13 09:49] LABS: CREATININE 0.9 mg/dL (0.6-1.3); POTASSIUM 3.8 mmol/L (3.5-5.1)
[2023-11-13 09:58] LABS: CALCIUM 9.2 mg/dL (8.5-10.1)
[2023-11-13 10:33] LABS: PHOSPHOROUS 3.1 mg/dL (2.5-4.9)
[2023-11-13 12:00] VITALS: BP 119/87; TEMP 98; O2SAT 96
[2023-11-13] MEDS ORDERED: FOLI1TAB94 PO (14:08)
[2023-11-13] MEDS ORDERED: PANT40TA49 PO (14:08)
[2023-11-13] MEDS ORDERED: CHLO25CA22 PO (14:08)
[2023-11-13] MEDS ORDERED: PRAZ1CAP2 PO (14:08)
[2023-11-13] MEDS ORDERED: THIA100T13 PO (14:08)
[2023-11-13 16:00] VITALS: BP 136/85; TEMP 97.8; O2SAT 98
[2023-11-13] MEDS: PRAZOSIN HCL 1 MG CAPSULE PO SCH (17:35)
[2023-11-13 20:35] VITALS: BP 125/89; TEMP 97.5; O2SAT 96
[2023-11-13] MEDS: TRAZODONE 100 MG TABLET PO SCH (21:47)
[2023-11-13] MEDS: QUETIAPINE FUMARATE 100 MG TABLET PO SCH (21:48)
[2023-11-13] MEDS: MAGNESIUM OXIDE 400 MG TABLET PO SCH (21:48)
[2023-11-13] MEDS ORDERED: LOPERAMIDE HCL 2 MG CAPSULE PO PRN (23:00)
[2023-11-14 04:35] VITALS: BP 110/70; TEMP 97.6; O2SAT 94
[2023-11-14] MEDS: CHLORDIAZEPOXIDE HCL 25 MG CAPSULE PO SCH (06:29)
[2023-11-14] MEDS: PANTOPRAZOLE SODIUM 40 MG TABLET.DR PO SCH (06:40)
[2023-11-14 08:00] VITALS: BP 112/68; TEMP 98.6; O2SAT 100
[2023-11-14] MEDS ORDERED: PROTEIN SUPPLEMENT (PROSTAT) 30 ML LIQUID PO SCH (08:00)
[2023-11-14] MEDS: NIFEdipine XL 30 MG TABSR PO SCH (08:48)
[2023-11-14] MEDS: DULOXETINE 60 MG CAPSULE.DR PO SCH (08:48)
[2023-11-14] MEDS: THIAMINE HCL 100 MG TABLET PO SCH (08:48)
[2023-11-14] MEDS: FOLIC ACID 1 MG TABLET PO SCH (08:49)
[2023-11-14 12:00] VITALS: BP 136/78; TEMP 97.6; O2SAT 98
== END 2023-11-14 13:35 | disposition home or self-care (01) | DRG 816 ==
LOC: ER 14:18 → TELE3 11-09 → MEDSURG3 11-09 00:28 → MED 11-12 08:06 → MEDSURG3 11-13 02:45
PROVIDERS: ADMIT Internal Medicine; ATTEND Internal Medicine
PROC: 06HY33Z Insertion of Infusion Device into Lower Vein, Percutaneous Approach (ICD-10-PCS; principal; 2023-11-09)
DX: T51.0X1A Toxic effect of ethanol, accidental (unintentional), initial encounter (principal); G92.8 Other toxic encephalopathy; E87.20 Acidosis, unspecified; K70.10 Alcoholic hepatitis without ascites; Y92.89 Other specified places as the place of occurrence of the external cause; E87.6 Hypokalemia; E83.42 Hypomagnesemia; F32.9 Major depressive disorder, single episode, unspecified; R94.31 Abnormal electrocardiogram [ECG] [EKG]; F10.239 Alcohol dependence with withdrawal, unspecified; F10.229 Alcohol dependence with intoxication, unspecified; Y90.6 Blood alcohol level of 120-199 mg/100 ml; Z86.59 Personal history of other mental and behavioral disorders
CPT/HCPCS: 36415; 36600; 83605; 83735; 84100; 85025; 86803; 87340; 87806; 93005; A4663; G0378; G0480; J1200; J2060; J2405; J2765; J3475; J3480; J3490; J7040; Q0162

== ENCOUNTER 2023-12-12 15:31 | Emergency (ER) | payer OTHER ==
[~2023-12-12] VITALS: Ht 177.8 cm; Wt 93.0 kg
[~2023-12-12 15:31] MED LIST changes: +CHLO25CA22 PO; +FOLI1TAB94 PO; +PANT40TA49 PO; +PRAZ1CAP2 PO; +PROC-11 PO; +THIA100T13 PO
[2023-12-12 16:14] VITALS: O2SAT 98
[2023-12-12] MEDS ORDERED: DULO60CA45 PO (17:37)
[2023-12-12] MEDS ORDERED: GABA300C PO (17:37)
[2023-12-12] MEDS ORDERED: QUET300T2 PO (17:37)
[2023-12-12] MEDS ORDERED: PRAZ2CAP2 PO (17:37)
== END 2023-12-12 18:55 | disposition home or self-care (01) ==
LOC: ER 15:31
DX: F43.10 Post-traumatic stress disorder, unspecified (principal); F31.9 Bipolar disorder, unspecified; K21.9 Gastro-esophageal reflux disease without esophagitis; F17.200 Nicotine dependence, unspecified, uncomplicated; Z79.899 Other long term (current) drug therapy; Z59.00 Homelessness unspecified
CPT/HCPCS: A4606; A4663

== ENCOUNTER 2024-03-15 13:13 | Emergency (ER) | payer MEDICAID ==
[~2024-03-15] VITALS: Ht 177.8 cm; Wt 95.3 kg
[~2024-03-15 13:13] MED LIST changes: +GABA300C PO; +QUET300T2 PO
[2024-03-15] MEDS ORDERED: QUET300T2 PO (15:01)
[2024-03-15] MEDS ORDERED: PRAZ2CAP2 PO (15:01)
[2024-03-15 15:06] VITALS: BP 133/74; TEMP 97; O2SAT 99
== END 2024-03-15 15:07 | disposition home or self-care (01) ==
LOC: ER 13:13
DX: I10 Essential (primary) hypertension (principal); F31.9 Bipolar disorder, unspecified; Z76.0 Encounter for issue of repeat prescription; K21.9 Gastro-esophageal reflux disease without esophagitis; F17.200 Nicotine dependence, unspecified, uncomplicated; Z98.890 Other specified postprocedural states; Z79.899 Other long term (current) drug therapy
CPT/HCPCS: A4606; A4663

== ENCOUNTER 2024-04-29 16:05 | Emergency (ER) | payer MEDICAID ==
[~2024-04-29] VITALS: Ht 177.8 cm; Wt 114.3 kg
[2024-04-29 17:29] LABS: ABG BASE EXCESS -5.1 mmol/L (-2.0-2.0); ABG HCO3 17.8 mmol/L (22.0-26.0); ABG PCO2 28.6 mmHg (35.0-48.0); ABG PH 7.412 (7.340-7.440); ABG PO2 75.1 mmHg (75.0-100.0); ABG TOTAL HEMOGLOBIN 16.2 G/dL (14.0-18.0); AaDO2 95.4 mmHg; COHb 0.3 % (0.0-3.9); MetHb 0.4 % (0.0-1.5); O2Hb 93.9 % (94.0-97.0)
[2024-04-29] MEDS ORDERED: ONDANSETRON ODT 4 MG TAB.RAPDIS ONE (18:56)
[2024-04-29] MEDS ORDERED: HYDROMORPHONE 2 MG/1 ML DISP.SYRIN ONE (18:56)
[2024-04-29] MEDS ORDERED: CHLORDIAZEPOXIDE HCL 25 MG CAPSULE ONE (18:56)
[2024-04-29] MEDS: ONDANSETRON ODT 4 MG TAB.RAPDIS SL ONE (19:00)
[2024-04-29] MEDS: HYDROMORPHONE 1 MG/1 ML DISP.SYRIN IM ONE (19:02)
[2024-04-29] MEDS: CHLORDIAZEPOXIDE HCL 25 MG CAPSULE PO ONE (19:02)
[2024-04-29 19:03] LABS: BASOPHILS # (AUTO) 0.1 K/UL (0.0-0.2); BASOPHILS % (AUTO) 0.9 % (0.0-2.0); EOSINOPHILS # (AUTO) 0.1 K/uL (0.0-0.7); EOSINOPHILS % (AUTO) 1.9 % (0.0-7.0); HEMATOCRIT 45.3 % (36.7-47.1); LYMPHOCYTES # (AUTO) 1.6 K/uL (0.8-4.8); LYMPHOCYTES % (AUTO) 27.3 % (20.5-51.5); MEAN CORPUSCULAR HEMOGLOBIN 31.7 uug (23.8-33.4); MEAN CORPUSCULAR HGB CONC 33 g/dL (32.5-36.3); MEAN CORPUSCULAR VOLUME 95.9 fL (73.0-96.2); MONOCYTES # (AUTO) 0.4 K/uL (0.1-1.30); MONOCYTES % (AUTO) 6.8 % (0.0-11.0); NEUTROPHILS # (AUTO) 3.7 K/uL (1.8-8.9); NEUTROPHILS % (AUTO) 63.1 % (38.5-71.5); PLATELET COUNT (AUTO) 256 K/uL (152-348); RED BLOOD CELL COUNT(AUTO) 4.73 MIL/uL (4.06-5.63); RED CELL DISTRIBUTION WIDTH 14.2 % (12.1-16.2); WHITE BLOOD COUNT (AUTO) 5.9 K/uL (3.6-10.2)
[2024-04-29 19:17] LABS: ETHANOL 177 MG/DL (0-10)
[2024-04-29 19:22] LABS: CALCIUM 8.9 mg/dL (8.5-10.1); CARBON DIOXIDE 18 mmol/L (21-32); CHLORIDE 103 mmol/L (98-107); CREATININE 1.1 mg/dL (0.6-1.3); GLUCOSE 79 mg/dL (74-106); POTASSIUM 3.9 mmol/L (3.5-5.1); SODIUM SERUM 141 mmol/L (136-145); UREA NITROGEN, BLOOD 13 mg/dL (7-18)
[2024-04-29 19:25] LABS: ALANINE AMINOTRANSFERASE 49 U/L (16-63); ALBUMIN 3.8 g/dL (3.4-5.0); ALKALINE PHOSPHATASE 88 U/L (50-136); ASPARTATE AMINOTRANSFERASE 21 U/L (15-37); BILIRUBIN,DIRECT 0.2 mg/dL (0.0-0.2); BILIRUBIN,TOTAL 0.6 mg/dL (0.2-1.0); TOTAL PROTEIN, SERUM 7.6 g/dL (6.4-8.2)
[2024-04-29 19:26] LABS: ACETAMINOPHEN < 2.0 ug/mL (10-30)
[2024-04-29 19:27] LABS: DIFFERENTIAL COMMENT 1
[2024-04-29 20:53] VITALS: BP 145/85; TEMP 98.6; O2SAT 95
== END 2024-04-29 20:53 | disposition home or self-care (01) ==
LOC: ER 16:06
DX: F10.129 Alcohol abuse with intoxication, unspecified (principal); K21.9 Gastro-esophageal reflux disease without esophagitis; R74.01 Elevation of levels of liver transaminase levels; F17.210 Nicotine dependence, cigarettes, uncomplicated; F31.9 Bipolar disorder, unspecified; Z98.890 Other specified postprocedural states; Z79.899 Other long term (current) drug therapy
CPT/HCPCS: 80076; 80048; 83690; 85025; 87040 ×2; 36415; 93005; 71045; 70450; 74176; 76705; 82803; 99285; 96372; 80299; 80320; 99406; 36600; J1170; A4606; A4663; G0480; Q0162

== ENCOUNTER 2024-06-10 13:18 | Emergency (ER) | payer MEDICAID ==
[~2024-06-10] VITALS: Ht 177.8 cm; Wt 108.9 kg
[~2024-06-10 13:18] MED LIST changes: -CHLO25CA22 PO; -PRAZ1CAP2 PO; -PROC-11 PO; -QUET100T PO; -THIA100T13 PO; -TRAZ-257 PO
[2024-06-10] MEDS ORDERED: DULO60CA45 PO (13:42)
[2024-06-10 13:46] VITALS: BP 141/96; O2SAT 98
== END 2024-06-10 13:46 | disposition home or self-care (01) ==
LOC: ER 13:18
DX: F31.9 Bipolar disorder, unspecified (principal); Z76.0 Encounter for issue of repeat prescription; K21.9 Gastro-esophageal reflux disease without esophagitis; F17.210 Nicotine dependence, cigarettes, uncomplicated; Z98.890 Other specified postprocedural states; Z79.899 Other long term (current) drug therapy
CPT/HCPCS: A4606; A4663

== ENCOUNTER 2024-10-05 10:37 | Inpatient (IN) | payer MEDICAID ==
[~2024-10-05] VITALS: Ht 177.8 cm; Wt 113.4 kg
[2024-10-05] MEDS: IV NORMAL SALINE 1000 ML BAG IV ONE (10:46)
[2024-10-05] MEDS ORDERED: ONDANSETRON 4 MG/2 ML VIAL ONE (11:11)
[2024-10-05] MEDS ORDERED: LORAZEPAM 0.5 MG TABLET ONE (11:12)
[2024-10-05] MEDS: LORAZEPAM 0.5 MG TABLET PO ONE ×2 (11:18→14:42)
[2024-10-05] MEDS: ONDANSETRON 4 MG/2 ML VIAL IV ONE (11:50)
[2024-10-05] MEDS ORDERED: LORAZEPAM 1 MG TABLET ONE (14:39)
[2024-10-05 15:00] LABS: BASOPHILS # (AUTO) 0.1 K/UL (0.0-0.2); BASOPHILS % (AUTO) 0.3 % (0.0-2.0); HEMATOCRIT 45.9 % (36.7-47.1); HEMOGLOBIN 15.7 g/dL (12.5-16.3); LYMPHOCYTES # (AUTO) 1.2 K/uL (0.8-4.8); LYMPHOCYTES % (AUTO) 7.6 % (20.5-51.5); MEAN CORPUSCULAR HEMOGLOBIN 33.3 uug (23.8-33.4); MEAN CORPUSCULAR HGB CONC 34 g/dL (32.5-36.3); MONOCYTES % (AUTO) 6.7 % (0.0-11.0); NEUTROPHILS # (AUTO) 13.1 K/uL (1.8-8.9); NEUTROPHILS % (AUTO) 85.4 % (38.5-71.5); PLATELET COUNT (AUTO) 325 K/uL (152-348); RED BLOOD CELL COUNT(AUTO) 4.73 MIL/uL (4.06-5.63); RED CELL DISTRIBUTION WIDTH 14.1 % (12.1-16.2); WHITE BLOOD COUNT (AUTO) 15.3 K/uL (3.6-10.2)
[2024-10-05 15:01] LABS: *AMPHETAMINE, URINE NEGATIVE (NEGATIVE); *BARBITURATE, URINE NEGATIVE (NEGATIVE); *BENZODIAZEPINE, URINE NEGATIVE (NEGATIVE); *CANNABINOID, URINE NEGATIVE (NEGATIVE); *COCCAINE, URINE NEGATIVE (NEGATIVE); *OPIATE, URINE NEGATIVE (NEGATIVE); *PHENCYCLIDINE SCREEN,URINE NEGATIVE (NEGATIVE); FENTANYL, URINE NEGATIVE (NEGATIVE)
[2024-10-05 15:13] LABS: CARBON DIOXIDE 11 mmol/L (21-32); CHLORIDE 97 mmol/L (98-107); GLUCOSE 121 mg/dL (74-106); POTASSIUM 4.3 mmol/L (3.5-5.1); SODIUM SERUM 135 mmol/L (136-145); UREA NITROGEN, BLOOD 25 mg/dL (7-18)
[2024-10-05 15:17] LABS: ETHANOL < 3 MG/DL (0-10)
[2024-10-05 15:19] LABS: ACETAMINOPHEN < 2.0 ug/mL (10-30); ALANINE AMINOTRANSFERASE 49 U/L (16-63); ALBUMIN 4.1 g/dL (3.4-5.0); ALKALINE PHOSPHATASE 97 U/L (50-136); ASPARTATE AMINOTRANSFERASE 36 U/L (15-37); BILIRUBIN,DIRECT 0.4 mg/dL (0.0-0.2); BILIRUBIN,TOTAL 1.7 mg/dL (0.2-1.0); TOTAL PROTEIN, SERUM 8.2 g/dL (6.4-8.2)
[2024-10-05 15:38] LABS: MAGNESIUM 1.7 mg/dL (1.8-2.4); PHOSPHOROUS 3.1 mg/dL (2.5-4.9)
[2024-10-05] MEDS ORDERED: ONDANSETRON 4 MG/2 ML VIAL IV PRN (17:30)
[2024-10-05 20:53] VITALS: BP 162/106; TEMP 97.7; O2SAT 97
[2024-10-05] MEDS: IV LACTATED RINGERS SOLUTION 1,000 ML IV SCH (21:00)
[2024-10-05] MEDS: LORAZEPAM 0.5 MG TABLET PO PRN (21:12)
[2024-10-05] MEDS: ENOXAPARIN SODIUM 40 MG/0.4 ML DISP.SYRIN SQ SCH (21:15)
[2024-10-05] MEDS ORDERED: MAGNESIUM SULFATE/D5W 200 ML ONE (22:00)
[2024-10-05] MEDS: MAGNESIUM SULFATE/D5W 100 ML IV SCH (22:06)
[2024-10-05] MEDS ORDERED: THIAMINE HCL 200 MG/2 ML VIAL ONE (22:35)
[2024-10-05] MEDS: QUETIAPINE FUMARATE 25 MG TABLET PO PRN (23:57)
[2024-10-06] VITALS: BP 134/77; TEMP 98.1; O2SAT 99
[2024-10-06] MEDS: THIAMINE HCL INJ 100 MG in IV DEXTROSE 5% 50 ML IV ONE (00:08)
[2024-10-06 06:00] VITALS: BP 152/82; TEMP 97.6; O2SAT 99
[2024-10-06] MEDS: PANTOPRAZOLE SODIUM 40 MG TABLET.DR PO SCH (06:56)
[2024-10-06] MEDS ORDERED: PANTOPRAZOLE SODIUM 40 MG TABLET.DR PO SCH (07:00)
[2024-10-06 07:16] LABS: BASOPHILS % (AUTO) 0.2 % (0.0-2.0); EOSINOPHILS % (AUTO) 0.1 % (0.0-7.0); HEMATOCRIT 37.7 % (36.7-47.1); HEMOGLOBIN 13.4 g/dL (12.5-16.3); LYMPHOCYTES # (AUTO) 1.2 K/uL (0.8-4.8); LYMPHOCYTES % (AUTO) 12.9 % (20.5-51.5); MEAN CORPUSCULAR HEMOGLOBIN 34.1 uug (23.8-33.4); MEAN CORPUSCULAR HGB CONC 36 g/dL (32.5-36.3); MEAN CORPUSCULAR VOLUME 96.1 fL (73.0-96.2); MONOCYTES # (AUTO) 0.9 K/uL (0.1-1.30); MONOCYTES % (AUTO) 10.3 % (0.0-11.0); NEUTROPHILS % (AUTO) 76.5 % (38.5-71.5); PLATELET COUNT (AUTO) 199 K/uL (152-348); RED BLOOD CELL COUNT(AUTO) 3.92 MIL/uL (4.06-5.63); RED CELL DISTRIBUTION WIDTH 13.9 % (12.1-16.2); WHITE BLOOD COUNT (AUTO) 9.1 K/uL (3.6-10.2)
[2024-10-06 07:29] LABS: DIFFERENTIAL COMMENT 1
[2024-10-06 07:35] VITALS: BP 106/63; TEMP 98.4; O2SAT 100
[2024-10-06 07:48] LABS: ALBUMIN 3.2 g/dL (3.4-5.0); BILIRUBIN,TOTAL 1.4 mg/dL (0.2-1.0); CALCIUM 8.6 mg/dL (8.5-10.1); MAGNESIUM 2.4 mg/dL (1.8-2.4); PHOSPHOROUS 2.1 mg/dL (2.5-4.9); TOTAL PROTEIN, SERUM 6.5 g/dL (6.4-8.2)
[2024-10-06 08:17] LABS: THYROID STIMULATING HORMONE 0.887 mIU/mL (0.358-3.740)
[2024-10-06] MEDS: NIFEdipine XL 30 MG TABSR PO SCH (09:00)
[2024-10-06] MEDS: ATORVASTATIN 20 MG TABLET PO SCH (09:18)
[2024-10-06] MEDS: MULTIVIT, IRON, MIN NO. 8, FA TABLET PO SCH (09:19)
[2024-10-06] MEDS: THIAMINE HCL 100 MG TABLET PO SCH (09:19)
[2024-10-06] MEDS: DULOXETINE 60 MG CAPSULE.DR PO SCH (09:19)
[2024-10-06] MEDS: GABAPENTIN 300 MG CAPSULE PO SCH (09:19)
[2024-10-06] MEDS: FOLIC ACID 1 MG TABLET PO SCH (09:21)
[2024-10-06] MEDS: CLOTRIMAZOLE/BETAMET DIPROP CREAM 15 GM TUBE TOP SCH (11:42)
[2024-10-06] MEDS: ACETAMINOPHEN 325 MG TABLET PO PRN (11:44)
[2024-10-06 11:52] VITALS: BP 125/70; TEMP 98.5; O2SAT 96
[2024-10-06 16:00] VITALS: BP 117/75; TEMP 98.5; O2SAT 97
[2024-10-06] MEDS: NEUTRA PHOS PACKET PO ONE (16:22)
[2024-10-06] MEDS: IV LACTATED RINGERS SOLUTION 1,000 ML IV PRN (19:46)
[2024-10-06 20:02] VITALS: BP 147/87; TEMP 97.9; O2SAT 97
[2024-10-06] MEDS ORDERED: THIAMINE HCL INJ 100 MG in IV DEXTROSE 5% 50 ML IV SCH (21:00)
[2024-10-07] VITALS (7 sets, daily range): BP systolic 121–164; BP diastolic 77–88; TEMP 98.3–99.1; O2SAT 94–96
[2024-10-07 07:03] LABS: CALCIUM 8.4 mg/dL (8.5-10.1); CREATININE 0.8 mg/dL (0.6-1.3); PHOSPHOROUS 1.8 mg/dL (2.5-4.9)
[2024-10-07] MEDS: POTASSIUM CHLORIDE 10 MEQ TAB.PRT.SR PO SCH (10:21)
[2024-10-07] MEDS: LORAZEPAM 1 MG TABLET PO PRN (12:05)
[2024-10-07] MEDS: NEUTRA PHOS PACKET PO ONE (16:18)
[2024-10-07] MEDS ORDERED: NALT50TA PO (17:38)
[2024-10-07] MEDS: REMEDY ESSENTIAL ZINC PASTE 113 GM TP PRN (20:10)
[2024-10-08 00:35] VITALS: BP 143/98; TEMP 98.1; O2SAT 95
[2024-10-08] MEDS: IBUPROFEN 400 MG TABLET PO PRN (01:11)
[2024-10-08 05:13] VITALS: BP 181/96; TEMP 98; O2SAT 95
[2024-10-08 06:53] LABS: CALCIUM 8.9 mg/dL (8.5-10.1); CREATININE 0.9 mg/dL (0.6-1.3); POTASSIUM 3.5 mmol/L (3.5-5.1)
[2024-10-08 08:00] VITALS: BP 141/76; TEMP 98.5; O2SAT 94
[2024-10-08 08:48] VITALS: BP 141/76
== END 2024-10-08 11:30 | disposition home or self-care (01) | DRG 422 ==
LOC: ER 10:37 → TELE3 17:15
PROVIDERS: ADMIT Nurse Practitioner Acute Care; ATTEND Nurse Practitioner Acute Care
PROC: 05HB33Z Insertion of Infusion Device into Right Basilic Vein, Percutaneous Approach (ICD-10-PCS; principal; 2024-10-05)
DX: E87.29 Other acidosis (principal); E86.0 Dehydration; E87.1 Hypo-osmolality and hyponatremia; D72.829 Elevated white blood cell count, unspecified; F10.239 Alcohol dependence with withdrawal, unspecified; Y90.0 Blood alcohol level of less than 20 mg/100 ml; F31.9 Bipolar disorder, unspecified; N40.0 Benign prostatic hyperplasia without lower urinary tract symptoms; K21.9 Gastro-esophageal reflux disease without esophagitis; G62.9 Polyneuropathy, unspecified; Z86.79 Personal history of other diseases of the circulatory system; E78.5 Hyperlipidemia, unspecified; F41.9 Anxiety disorder, unspecified; I10 Essential (primary) hypertension; Z79.899 Other long term (current) drug therapy; Z98.890 Other specified postprocedural states
CPT/HCPCS: 36415; 82746; 83690; 83735; 84100; 84443; 85025; 98960; A4606; A4663; G0378; G0480; J1650; J2405; J3411; J3475; J7040; J7120

== ENCOUNTER 2024-12-03 11:27 | Emergency (ER) | payer MEDICAID ==
[~2024-12-03] VITALS: Ht 177.8 cm; Wt 108.9 kg
[~2024-12-03 11:27] MED LIST changes: +NALT50TA PO
[2024-12-03] MEDS ORDERED: GABA300C PO (12:34)
[2024-12-03] MEDS ORDERED: PRAZ2CAP2 PO (12:34)
[2024-12-03] MEDS ORDERED: QUET300T2 PO (12:34)
[2024-12-03 12:42] VITALS: BP 126/98
== END 2024-12-03 12:42 | disposition home or self-care (01) ==
LOC: ER 11:27
DX: Z76.0 Encounter for issue of repeat prescription (principal); E78.5 Hyperlipidemia, unspecified; I11.9 Hypertensive heart disease without heart failure; K21.9 Gastro-esophageal reflux disease without esophagitis; F17.200 Nicotine dependence, unspecified, uncomplicated; Z79.899 Other long term (current) drug therapy; Z98.890 Other specified postprocedural states
CPT/HCPCS: A4606; A4663

== ENCOUNTER 2025-02-02 10:18 | Emergency (ER) | payer MEDICAID ==
[~2025-02-02] VITALS: Ht 177.8 cm; Wt 108.9 kg
[~2025-02-02 10:18] MED LIST changes: -ATOR20TA PO; -FOLI1TAB94 PO; -NIFE30TA2 PO; -PANT40TA49 PO
[2025-02-02] MEDS ORDERED: NALT50TA PO (10:54)
[2025-02-02] MEDS ORDERED: GABA300C PO (10:54)
[2025-02-02] MEDS ORDERED: QUET300T2 PO (10:54)
[2025-02-02] MEDS ORDERED: DULO60CA45 PO (10:54)
[2025-02-02] MEDS ORDERED: PRAZ2CAP2 PO (10:54)
[2025-02-02 11:03] VITALS: BP 140/98; TEMP 98.1; O2SAT 99
== END 2025-02-02 11:04 | disposition home or self-care (01) ==
LOC: ER 10:18
DX: F31.9 Bipolar disorder, unspecified (principal); I11.9 Hypertensive heart disease without heart failure; E78.5 Hyperlipidemia, unspecified; F10.20 Alcohol dependence, uncomplicated; F17.200 Nicotine dependence, unspecified, uncomplicated; K21.9 Gastro-esophageal reflux disease without esophagitis; Z76.0 Encounter for issue of repeat prescription; Z79.899 Other long term (current) drug therapy; Z98.890 Other specified postprocedural states
CPT/HCPCS: A4606; A4663